=== PATIENT | male | born 1945 | race Caucasian/White ===

== ENCOUNTER 2017-10-07 09:35 | Emergency (ER) | payer MEDICARE, OTHER ==
[2017-10-07 11:52] VITALS: BP 138/77
[2017-10-07] MEDS ORDERED: methylPREDNISolone Sodium Succinate 125 MG/2 ML SDV IM ONE (12:08)
--- NOTE | 2017-10-07 12:15 | EDM.PDOC ---
ED HPI GENERAL MEDICAL PROBLEM - General Chief Complaint: Skin Complaint Stated Complaint: RASH Time Seen by Provider: 10/07/17 11:52 Source of Information: Reports: Patient History Limitations: Reports: No Limitations - History of Present Illness INITIAL COMMENTS - FREE TEXT/NARRATIVE: 72 yo male presents with rash. Pt had thallium stress test on Sun. Sun night mild rash to abd has been worsening since. Severe itching to groin, ABD and axillary. Benedryl helps but does not resolve itching. Denies new exposure other then the Thallium. - Related Data Allergies Allergy/AdvReac Type Severity Reaction Status Date / Time celecoxib [From Celebrex] Allergy Severe Shortness Verified 10/07/17 11:57 of Breath Penicillins Allergy Severe Shortness Verified 10/07/17 11:57 of Breath Iodinated Contrast- Oral and AdvReac Nausea Verified 10/07/17 11:57 IV Dye [Iodinated Contrast Media - IV Dye] Home Meds: Home Meds Aspirin 81 mg PO DAILY 01/31/13 [History] Clopidogrel Bisulfate [Clopidogrel] 75 mg PO DAILY 01/31/13 [History] Gabapentin 300 mg PO BID 01/31/13 [History] Hydrocodone/Acetaminophen [Hydrocodone-Acetaminophen 5-325] 1 tab PO Q6H PRN [History] Nitroglycerin [Nitrostat] 1 tab SL ASDIRECTED 09/27/15 [History] Multivitamin with Minerals [Multiple Vitamin] 1 tab PO DAILY 05/19/16 [History] Acetaminophen 650 mg PO Q4H PRN 10/01/17 [History] Esomeprazole [NexIUM] 40 mg PO DAILY 10/01/17 [History] Furosemide 40 mg PO DAILY 10/01/17 [History] Isosorbide Mononitrate [Isosorbide Mononitrate ER] 60 mg PO DAILY 10/01/17 [ History] Metoprolol Succinate 25 mg PO DAILY 10/01/17 [History] atorvaSTATin [Lipitor] 80 mg PO BEDTIME 10/01/17 [History] Past Medical History HEENT History: Reports: Hard of Hearing, Impaired Vision Other HEENT History: wear glasses Cardiovascular History: Reports: Angina, Blood Clots/VTE/DVT, Bypass, CAD, Hypertension, [place], Stents Respiratory History: Reports: Pneumonia, Recurrent Gastrointestinal History: Reports: Chronic Diarrhea, Hiatal Hernia, Other (See Below) Other Gastrointestinal History: c diff Musculoskeletal History: Reports: Arthritis, Back Pain, Chronic Neurological History: Reports: Other (See Below) Other Neuro History: spina bifida - Infectious Disease History Infectious Disease History: Reports: C-Difficile - Past Surgical History Cardiovascular Surgical History: Reports: Coronary Artery Bypass GI Surgical History: Reports: Appendectomy, Cholecystectomy, Colonoscopy, EGD, Hernia Repair/Other Male Surgical History: Reports: TURP-Transurethral Resection of Prostate Musculoskeletal Surgical History: Reports: Other (See Below) Social & Family History - Family History Family Medical History: Noncontributory - Tobacco Use Smoking Status *Q: Never Smoker - Caffeine Use Caffeine Use: Reports: Tea - Living Situation & Occupation Living situation: Reports: Occupation: Retired ED ROS GENERAL - Review of Systems Review Of Systems: See Below Constitutional: Denies: Fever, Chills Respiratory: Denies: Shortness of Breath, Wheezing Cardiovascular: Denies: Chest Pain ED EXAM, SKIN/RASH Exam: See Below Exam Limited By: No Limitations General Appearance: Alert, WD/WN, No Apparent Distress Respiratory/Chest: No Respiratory Distress Psychiatric: Normal Affect, Normal Mood Skin: Warm, Dry, Rash Location, Skin: Abdomen, Back, Lower Extremity, Right, Lower Extremity, Left, Genital, Axillary, Groin Characteristics: Maculopapular, Erythematous (blanchable) Lymphatic: No Adenopathy Course - Vital Signs Last Recorded V/S: Last Vital Signs Temp 35 C L 10/07/17 11:51 Pulse 61 10/07/17 11:51 Resp 17 10/07/17 11:51 BP 138/77 10/07/17 11:51 Pulse Ox 98 10/07/17 11:51 - Orders/Labs/Meds Meds: Medications Discontinued Medications Generic Name Dose Route Start Last Admin Trade Name Freq PRN Reason Stop Dose Admin Methylprednisolone Sodium Succinate 125 mg 10/07/17 12:08 Solu-Medrol IM 10/07/17 12:09 ONETIME ONE - Re-Assessments/Exams Free Text/Narrative Re-Assessment/Exam: 10/07/17 12:17 IM solumedrol given in ER. Encouraged pt to increase fluid intake with goal of 2 liters per day. avoid hot baths or showers and utilize benedryl and needed. Will DC on prednisone taper to start tomorrow Departure - Departure Time of Disposition: 12:18 Disposition: Home, Self-Care 01 Clinical Impression: Allergic drug rash - Discharge Information Referrals: Ryan Ramírez MD [Primary Care Provider] - Additional Instructions: prednisone 20 mg taper: 2 tablets for 3 days, 1 tablet for 3 days, half tablet for 2 days. increase fluid intake with goal of 2 liters per day avoid hot baths or showers may use benedryl as needed for itching follow-up with primary care if not markedly improved by Sunday
== END 2017-10-07 12:33 | disposition home or self-care (01) ==
LOC: JP.ED 09:35
DX: L27.0 Generalized skin eruption due to drugs and medicaments taken internally (principal); T50.905A Adverse effect of unspecified drugs, medicaments and biological substances, initial encounter; I10 Essential (primary) hypertension; M19.90 Unspecified osteoarthritis, unspecified site; I25.2 Old myocardial infarction; Z79.899 Other long term (current) drug therapy; Z88.1 Allergy status to other antibiotic agents; Z88.0 Allergy status to penicillin; Z91.041 Radiographic dye allergy status
CPT/HCPCS: 96372; 99283; J2930

== ENCOUNTER 2020-11-02 20:13 | Observation (INO) | payer MEDICARE ==
[2020-11-02] MEDS ORDERED: Ondansetron 4 MG/2 ML SDV IVPUSH ONE (21:12)
[2020-11-02] MEDS ORDERED: HYDROmorphone 0.5 MG/0.5 ML Syringe IVPUSH ONE (21:12)
[2020-11-02] MEDS ORDERED: Sodium Chloride 0.9% 1,000 ML IV SCH (21:15)
--- NOTE | 2020-11-02 22:46 | CRLCT ---
CT HEAD DATE: 11/02/2020 CLINICAL HISTORY: Patient with fall and head trauma. TECHNIQUE: Standard CT scanning of the head was performed. COMPARISON: None. FINDINGS: There is a 6mm x 3mm hyperdense lesion in the left aspect of the posterior falx, most likely representing a small subdural hemorrhage given the history of trauma. There is no territorial infarction. There are moderate microangiopathic changes. There is diffuse parenchymal volume loss. There is no significant mass effect or midline shift. The calvarium is unremarkable. The orbits are unremarkable. The paranasal sinuses are unremarkable. The mastoid air cells are unremarkable. The soft tissues are unremarkable. IMPRESSION: 1. 6mm x 3mm hyperdense lesion in the left aspect of the posterior falx, in the medial parietal region, most likely represents a small subdural hemorrhage given the history of recent trauma. If this lesion does not resolve in follow-up imaging, then a small meningioma should be considered. A follow-up head CT in 4-6 hours is recommended to assess for any interval change. 2. Moderate microangiopathic changes and diffuse parenchymal volume loss. Findings were discussed with Dr. Barnes at 10:42 AM, within 2 minutes of identification of the hemorrhage. Please note that all CT scans at this facility use dose modulation, iterative reconstruction, and/or weight-based dosing when appropriate to reduce radiation dose to as low as reasonably achievable. Dictated by: Elizabeth Beckman MD @ 11/02/2020 22:45:49 (Electronically Signed)
--- NOTE | 2020-11-02 23:07 | CRLCT ---
INDICATION: Fall, injury to right chest and abdomen TECHNIQUE: CT chest, abdomen, and pelvis without i.v. contrast. Coronal and sagittal reformats were obtained. COMPARISON: 05/31/2016, 09/27/2015 FINDINGS: CHEST: Moderate image quality degradation noted due to beam hardening artifacts from scanning with the arms by the patient`s side. Cardiovascular: The heart has an unremarkable appearance and size. The pulmonary arteries are unremarkable in appearance. Mild stable aneurysmal enlargement of the ascending aorta is noted measuring 4 cm. Severe atherosclerotic calcifications are noted in the coronary arteries. Previous median sternotomy and coronary artery bypass grafting (CABG) noted. Mediastinum: No mass or adenopathy seen. Lung: Mild linear scarring is seen in the posterior right upper lobe. Pleural parenchymal scarring is present in the posterior right lower lobe. Mild bibasilar subpleural senescent fibrosis is seen. No pulmonary contusion, laceration or pneumothorax is seen. Infiltration of the subcutaneous fat is present within the right lateral abdominal wall which may represent edema and interstitial hematoma. There is a 3 mm nodule in the left upper lobe on image 51, series 3. A punctate nodule is present in the right upper lobe on image 44. A 2 mm nodule is present in the posterior right upper lobe on image 52. There is a subpleural 2 mm nodule present in the right lower lobe on image 56. Small 4 mm nodules present in the anterior right lower lobe. These are not significantly changed from 2017 and likely benign. Pleura and pericardium: Thin bilateral calcified pleural plaques are present in the hemithoraces. These may be due to prior asbestos exposure. No significant pericardial effusion is present. Chest wall and axilla: No mass or adenopathy seen. Bone: Unremarkable for age. No acute osseous injuries seen. ABDOMEN/PELVIS: Liver: Unremarkable. Spleen: Unremarkable. Pancreas: Unremarkable. Gallbladder: Previous cholecystectomy noted without significant intra- or extrahepatic biliary ductal dilatation seen. Kidney: Unremarkable. No kidney or ureteral stones or obstruction seen. Adrenal: Unremarkable. Bowel: A moderate amount of stool is present within the rectal vault. The appendix is normal in appearance and size. Vascular: See above. Lymph: Unremarkable. Peritoneum: Unremarkable. No pneumoperitoneum is seen. No significant ascites is noted. Pelvis: Moderate bladder distention is noted. Soft tissue: See above. Bone: Anterior spinal fusion of L3 through L5 noted. IMPRESSION: 1. Infiltration of the subcutaneous fat is present within the right lateral abdominal wall which may represent edema and interstitial hematoma. Dictated by Elier Berrios MD @ 11/02/2020 11:06:16 PM Please note that all CT scans at this facility use dose modulation, iterative reconstruction, and/or weight-based dosing when appropriate to reduce radiation dose to as low as reasonably achievable. Dictated by: Elier Berrios MD @ 11/02/2020 23:06:20 (Electronically Signed)
--- NOTE | 2020-11-02 23:28 | EDM.PDOC ---
ED HPI GENERAL MEDICAL PROBLEM - General Chief Complaint: Abdominal Pain Stated Complaint: FELL Time Seen by Provider: 11/02/20 20:45 Source of Information: Reports: Patient, Family History Limitations: Reports: No Limitations - History of Present Illness INITIAL COMMENTS - FREE TEXT/NARRATIVE: pt was in the back yard and fell from ground level and landed on his rt side. He did hit his head and the rt side of his chest and his rt abdoman. He did develop a hematoma on the rt side of the abdoman which has gotten larger he believes in the last hr. Onset: Today, Sudden Duration: Hour(s): Location: Reports: Head, Chest, Abdomen, Other ( he is having pain with deep breathing. ) Quality: Reports: Sharp Associated Symptoms: Reports: Chest Pain, Other (pt is having pain in the rt lower abdoman. ) Right Flank Pain Score (Numeric/FACES): 8 - Related Data Allergies Allergy/AdvReac Type Severity Reaction Status Date / Time celecoxib [From Celebrex] Allergy Severe Shortness Verified 10/17/19 10:08 of Breath Penicillins Allergy Severe Shortness Verified 10/17/19 10:08 of Breath regadenoson [From Lexiscan] Allergy Rash Verified 10/17/19 11:03 Iodinated Contrast Media AdvReac Nausea Verified 11/02/20 20:49 [Iodinated Contrast Media - IV Dye] Home Meds: Home Meds Aspirin 81 mg PO DAILY 01/31/13 [History] Clopidogrel Bisulfate [Clopidogrel] 75 mg PO DAILY 01/31/13 [History] Gabapentin 300 mg PO BID 01/31/13 [History] Hydrocodone/Acetaminophen [Hydrocodone-Acetaminophen 5-325] 1 tab PO Q6H PRN 01/31/13 [History] Nitroglycerin [Nitrostat] 1 tab SL ASDIRECTED 09/27/15 [History] Multivitamin with Minerals [Multiple Vitamin] 1 tab PO DAILY 05/19/16 [History] Furosemide 40 mg PO DAILY 10/01/17 [History] Isosorbide Mononitrate [Isosorbide Mononitrate ER] 60 mg PO DAILY 10/01/17 [History] Metoprolol Succinate 12.5 mg PO BID 10/01/17 [History] atorvaSTATin [Lipitor] 80 mg PO BEDTIME 10/01/17 [History] Acetaminophen [Tylenol Arthritis] 650 mg PO ASDIRECTED PRN 06/03/19 [History] amLODIPine [Norvasc] 5 mg PO DAILY 06/03/19 [History] Past Medical History HEENT History: Reports: Hard of Hearing, Impaired Vision Other HEENT History: wear glasses Cardiovascular History: Reports: Angina, Blood Clots/VTE/DVT, Bypass, CAD, Hypertension, [place], Stents Respiratory History: Reports: Pneumonia, Recurrent Gastrointestinal History: Reports: Chronic Diarrhea, Hiatal Hernia, Other (See Below) Other Gastrointestinal History: c diff Musculoskeletal History: Reports: Arthritis, Back Pain, Chronic Neurological History: Reports: Other (See Below) Other Neuro History: spina bifida - Infectious Disease History Infectious Disease History: Reports: C-Difficile, Meningitis, Rheumatic Fever, Other (See Below) Other Infectious Disease History: non - infectious meningitis - Past Surgical History HEENT Surgical History: Reports: None Cardiovascular Surgical History: Reports: Coronary Artery Bypass GI Surgical History: Reports: Appendectomy, Cholecystectomy, Colonoscopy, EGD, Hernia Repair/Other Male Surgical History: Reports: TURP-Transurethral Resection of Prostate Musculoskeletal Surgical History: Reports: Other (See Below) Other Musculoskeletal Surgeries/Procedures:: back and neck surgery Social & Family History - Family History Family Medical History: No Pertinent Family History - Tobacco Use Tobacco Use Status *Q: Former Tobacco User Used Tobacco, but Quit: Yes Month/Year Tobacco Last Used: 05/1995 - Caffeine Use Caffeine Use: Reports: None - Recreational Drug Use Recreational Drug Use: No - Living Situation & Occupation Living situation: Reports: Occupation: Retired ED ROS GENERAL - Review of Systems Review Of Systems: See Below Constitutional: Reports: Weakness HEENT: Reports: No Symptoms, Other (mild headache) Respiratory: Reports: Pleuritic Chest Pain, Other (pt ghurts when he takes a deep breath) Cardiovascular: Reports: No Symptoms Endocrine: Reports: No Symptoms GI/Abdominal: Reports: Other (pt has a hematoma in rt abdomanal wall. ) : Reports: No Symptoms Musculoskeletal: Reports: No Symptoms Skin: Reports: No Symptoms Neurological: Reports: Headache, Other (pt did hit his head and he is on plavix) Psychiatric: Reports: No Symptoms ED EXAM, GI/ABD - Physical Exam Exam: See Below Text/Narrative:: pt arrived after a fall. He hit his head his rt chest and his rt abdoman. He has a obvious hematoma on the rt abdomanal wall. Exam Limited By: No Limitations General Appearance: Alert, Moderate Distress, Other (hurts with deep breathing. ) Ears: Normal TMs Nose: Normal Inspection Throat/Mouth: Normal Inspection Head: Other (mild swellon the rt side of the frontal area. ) Neck: Normal Inspection Respiratory/Chest: Other (pain with deep breathing. ) Cardiovascular: Regular Rate, Rhythm GI/Abdominal Exam: Other ( tender. He has an obvious hematoma. ) (Male) Exam: Deferred Rectal (Males) Exam: Deferred Back Exam: Normal Inspection Extremities: Normal Inspection Neurological: Alert, Oriented, Normal Cognition, Other (pt diod not lose consciousness) Psychiatric: Normal Affect Course - Vital Signs Last Recorded V/S: Last Vital Signs Temp 36.5 C 11/02/20 20:46 Pulse 83 11/02/20 22:22 Resp 20 11/02/20 20:46 BP 157/74 H 11/02/20 22:22 Pulse Ox 94 L 11/02/20 22:22 - Orders/Labs/Meds Orders: Active Orders 24 hr Category Date Time Status UA W/MICROSCOPIC [URIN] Urgent Lab 11/02/20 22:40 Ordered Sodium Chloride 0.9% [Normal Saline] 1,000 ml Med 11/02/20 21:15 Active IV ASDIRECTED Medication Orders Sodium Chloride (Normal Saline) 1,000 mls @ 150 mls/hr IV ASDIRECTED RUBA Last Admin: 11/02/20 21:30 Dose: 150 mls/hr Documented by: MERCEDEZ Labs: Laboratory Tests 11/02/20 11/02/20 Range/Units 21:20 21:20 WBC 7.5 (4.5-11.0) K/uL RBC 3.53 L (4.30-5.90) M/uL Hgb 12.1 (12.0-15.0) g/dL Hct 35.6 L (40.0-54.0) % MCV 101 H (80-98) fL MCH 34 H (27-31) pg MCHC 34 (32-36) % Plt Count 182 (150-400) K/uL Neut % (Auto) 72.7 H (36-66) % Lymph % (Auto) 15.2 L (24-44) % Harper % (Auto) 10.4 H (2-6) % Eos % (Auto) 1.6 L (2-4) % Baso % (Auto) 0.1 (0-1) % Sodium 140 (140-148) mmol/L Potassium 4.2 (3.6-5.2) mmol/L Chloride 104 (100-108) mmol/L Carbon Dioxide 26 (21-32) mmol/L Anion Gap 9.6 (5.0-14.0) mmol/L BUN 28 H (7-18) mg/dL Creatinine 1.3 (0.7-1.3) mg/dL Est Cr Clr Drug Dosing 55.49 mL/min Estimated GFR (MDRD) 54 L (>60) BUN/Creatinine Ratio Not Reportable Glucose 117 H (74-106) mg/dL Calcium 8.8 (8.5-10.1) mg/dL Total Bilirubin 0.7 (0.2-1.0) mg/dL AST 23 (15-37) U/L ALT 29 (12-78) U/L Alkaline Phosphatase 101 (46-116) U/L Total Protein 6.3 L (6.4-8.2) g/dL Albumin 3.7 (3.4-5.0) g/dL Globulin 2.6 (2.3-3.5) g/dL Albumin/Globulin Ratio 1.4 (1.2-2.2) Meds: Medications Generic Name Dose Route Start Last Admin Trade Name Jolynn PRN Reason Stop Dose Admin Sodium Chloride 1,000 mls @ 150 mls/hr 11/02/20 21:15 11/02/20 21:30 Normal Saline IV 150 mls/hr ASDIRECTED RUBA Administration Discontinued Medications Generic Name Dose Route Start Last Admin Trade Name Arnulfoq PRN Reason Stop Dose Admin Hydromorphone HCl 0.5 mg 11/02/20 21:12 11/02/20 21:30 Hydromorphone 0.5 Mg/0.5 Ml Syringe IVPUSH 11/02/20 21:13 0.5 mg ONETIME ONE Administration Ondansetron HCl 4 mg 11/02/20 21:12 11/02/20 21:30 Ondansetron 4 Mg/2 Ml Sdv IVPUSH 11/02/20 21:13 4 mg ONETIME ONE Administration - Re-Assessments/Exams Free Text/Narrative Re-Assessment/Exam: 11/02/20 23:31 cat scan of the chest abdoman and pelvis shows the abdomanal wall hematoma but no other finding. He had a cat scan of the head which shows a very small subdural. This will be observed and a repeat cat scan of the head will be obtained in am. This was the advuise of the neuroradiologist. Departure - Departure Time of Disposition: 23:33 Disposition: Admitted As Inpatient 66 Condition: Fair Clinical Impression: Subdural hematoma, Hematoma of abdominal wall - Discharge Information Referrals: Ryan Ramírez MD [Primary Care Provider] - Care Plan Goals: admit to Dr Buckley Sepsis Event Note (ED) - Evaluation Sepsis Screening Result: No Definite Risk - Focused Exam Vital Signs: Vital Signs Temp Pulse Resp BP Pulse Ox 11/02/20 22:22 83 157/74 H 94 L 11/02/20 21:29 82 166/88 H 11/02/20 20:46 36.5 C 79 20 169/81 H 97 - My Orders Last 24 Hours: My Active Orders 11/02/20 21:15 Sodium Chloride 0.9% [Normal Saline] 1,000 ml IV ASDIRECTED 11/02/20 22:40 UA W/MICROSCOPIC [URIN] Urgent - Assessment/Plan Last 24 Hours: My Active Orders 11/02/20 21:15 Sodium Chloride 0.9% [Normal Saline] 1,000 ml IV ASDIRECTED 11/02/20 22:40 UA W/MICROSCOPIC [URIN] Urgent
[2020-11-03] MEDS ORDERED: Nitroglycerin 0.4 MG Tab.SL SL SCH (00:30)
[2020-11-03] MEDS: Acetaminophen/HYDROcodone 325-10 MG Tab PO PRN ×4 (01:36→19:07)
[2020-11-03] MEDS: Acetaminophen 325 MG Tab PO PRN ×3 (01:36→10:09)
[2020-11-03] MEDS ORDERED: Sodium Chloride 0.9% 1,000 ML IV SCH (03:15)
--- NOTE | 2020-11-03 04:56 | HP ---
IDENTIFYING DATA: Mr. Eran De Souza is a 75-year-old male from [facility]. CHIEF COMPLAINT: Fall and injury. HISTORY OF PRESENT ILLNESS: Elderly gentleman was walking in his yard this evening when he tripped on an uneven surface on the hard ground and fell striking the right side of his head and right torso on the compacted ground. He had resultant pain of the chest and development of right-sided headache and was transported to the emergency room for evaluation. Denies previous history of stroke. No history of chronic headache disease. He had no loss of consciousness or syncope, simply stating he tripped on an uneven surface. He has had [id number] pain with deep inspiration or movement. No shortness of breath, cough, or sputum production. No abdominal upset or nausea. PAST MEDICAL HISTORY: Multiple previous surgeries including prior coronary artery bypass graft, coronary artery stenting, bilateral cataract extraction, appendectomy, cholecystectomy and hiatal hernia repair. Additionally, he has had TURP for benign prostatic disease as well as prior lumbar back surgery and cervical spine surgery x2. He has a noted history of hypertension, coronary artery disease, and chronic musculoskeletal pain. HABITS: Remote history of tobacco use, discontinuing smoking in 1995. Caffeine intake is nil. Alcohol intake averages 2 to 3 drinks monthly. IMMUNIZATIONS: Has received influenza and COVID vaccine series. CURRENT MEDICATIONS: Include aspirin 81 mg daily; clopidogrel 75 mg daily; gabapentin 300 mg b.i.d.; hydrocodone with acetaminophen 5/325 mg p.o. at bedtime; nitroglycerin 0.4 mg sublingually p.r.n. angina; multivitamin with mineral 1 daily; furosemide 40 mg daily; Imdur 60 mg daily; metoprolol succinate 12.5 mg b.i.d.; atorvastatin 80 mg at bedtime; acetaminophen 650 mg q.4 hours p.r.n. pain; amlodipine 5 mg p.o. daily. ALLERGIES: REPORTED TO CELEBREX, PENICILLIN, AND IV RADIOGRAPHIC CONTRAST AGENTS. SOCIAL HISTORY: He is retired. Generally performs ADLs independently. He has modest decline in hearing acuity, though does not require use of hearing aids. Previous cataract extraction is managed with corrective lenses. He is able to read standard print and drive without difficulty. No history of recurrent falls. Currently residing with his . No recent illnesses. He denies recent COVID exposure or acute respiratory syndrome. FAMILY HISTORY: Noncontributory. REVIEW OF SYSTEMS: NEUROLOGIC: Chronic paresthesias in the feet. History of lumbar and cervical spine disease with surgical stabilization. Cataract extraction. No history of strokes, seizures, or focal weakness. CARDIAC: History of hypertension, hyperlipidemia, and coronary artery disease with previous interventional therapy. Occasional stable intermittent angina, responds favorably to p.r.n. use of nitroglycerin. RESPIRATORY: Denies asthma, emphysema, cough, sputum production, fever or chronic respiratory disease. GASTROINTESTINAL: No history of hepatitis, jaundice, chronic dyspepsia, constipation, melena, or hematochezia. GENITOURINARY: Previous TURP for urinary retention. Nocturia x1. No urinary incontinence. MUSCULOSKELETAL: Chronic arthralgias including the back and cervical spine, chronic dependent edema with lower extremity ache reported. PHYSICAL EXAMINATION: GENERAL: Appearance is that of an elderly male, appearing stated age of 75, with moderate pain exacerbated by movement. VITAL SIGNS: On admission, temperature 36.5 degrees centigrade, pulse 83, respiratory rate 20, blood pressure 157/74, O2 saturation 94% on room air. HEENT: Hearing is slightly diminished. Canals are normal. Pupils are sluggish on constriction to light exposure. Extraocular eye movements are intact and without nystagmus. Light stimulation does cause intensifying of his right-sided headache pain. No facial asymmetry. Speech is clear. NECK: Brisk carotid pulses. No bruits. No JVD. LUNGS: Symmetrical and clear. Right-sided chest pain with deep inspiration or movement. HEART: Regular, without murmurs or gallops heard. ABDOMEN: Nondistended with active sounds. No organomegaly. No guarding or rebound. Good femoral pulses. Hematoma developing over the posterolateral aspect of the right trunk. No pain at the iliac crest or symphysis. EXTREMITIES: Chronic dependent edema. Intact pulses. No open skin lesions noted. Feet are slightly cool to touch. LABORATORY DATA: On admission; WBC 7.5, hemoglobin 12.1, platelet count 182,000. Sodium 140, potassium 4.2, creatinine 1.3, GFR 55, glucose 117 in a nonfasting state. Liver functions within normal range. CT imaging of the head suggests a small subdural hematoma 3 x 6 mm in diameter at the posterior left falx without other acute injury. CT of the chest, abdomen, and pelvis shows no acute bony injury. Hematoma developing over the right flank area is evident. No intraabdominal fluid. No evidence of pneumothorax or hemothorax. IMPRESSIONS: 1. Fall with contusion to the right chest and abdomen, developing a subcutaneous hematoma and resultant chest pain. 2. Small subdural hematoma suggested on CT imaging of the head with accompanying headache. Neurologic presentation is otherwise intact without cognitive impairment. 3. History of coronary artery disease status post coronary artery bypass grafting and coronary artery stenting. 4. Hypertension. 5. Hyperlipidemia. 6. Chronic arthralgias with previous cervical and lumbar spine surgeries. PLAN: With patient's pain and noticed subdural hematoma, he is admitted for continued observation. Vital signs and neuro checks are requested. We will provide clear liquids tonight. Request assistance from nursing with standing, ambulation, and voiding. Followup CT imaging of the head to exclude progressive intracranial bleed is requested for morning hours. We will provide standard bedtime dose of hydrocodone with acetaminophen and/or simple acetaminophen through the nighttime hours for pain. His routine anti-platelet and antihypertensive medications will be held through the night. Resume his cardiac regimen in the morning with the exception of anti-platelet agents if status is stable. We will maintain full code status per patient's expressed desire. Neuro checks have been ordered. Mukul Buckley MD /[id number]
--- NOTE | 2020-11-03 08:43 | PN ---
DATE OF SERVICE: 11/03/2020 SUBJECTIVE: A 75-year-old male with a history of chronic coronary artery disease and degenerative arthritis including involvement of the back was admitted yesterday evening following a fall outdoors while ambulating across an uneven surface with resultant contusion to the right truncal area and a blow to the head. CT imaging revealed a subcutaneous hematoma of the lower aspect of the right trunk without chest or intraabdominal injury. Additionally, he had evidence of a small subdural hematoma at the posterior left crural area which was notable and advised to be monitored as an inpatient with followup imaging for this acute event. Through the nighttime hours, he has noted modest right-sided frontal headache. He has had no visual disturbance or neck pain. Primary complaint is again right-sided chest wall pain with inspiration or movement. He has had no cough or sputum production. Denies GI upset. OBJECTIVE: VITAL SIGNS: Temperature 35.3 degrees centigrade, O2 sats 96% on room air, pulse rate 70, blood pressure 133/64. GENERAL: Appearance of moderate pain secondary to chest wall tenderness. No acute dyspnea is noted. No facial asymmetry. Speech is clear. Subjectively notes mild ongoing right frontotemporal headache pain. No nuchal rigidity. NECK: Brisk carotid pulses. LUNGS: Clear. Right-sided chest pain with inspiration. No wheeze or rhonchi. HEART: Regular without murmurs. ABDOMEN: Nondistended, soft tissue hematoma at the lateral right truncal area with modest pain. IMPRESSION AND PLAN: Fall with contusion to the right truncal region, hematoma developing at the right lower flank as well as noted small left-sided subdural hematoma. Follow up on enhanced CT imaging of the head is anticipated today. If intracranial bleed is unchanging, may be discharged to home. Will require ongoing analgesic therapy for chest and flank pain. Allow gradual increase in activity as tolerated in outpatient. Followup with his primary provider. Mukul Buckley MD /[id number]
--- NOTE | 2020-11-03 08:58 | CT ---
Head wo Cont CLINICAL HISTORY: Follow-up subdural COMPARISON: 11/02/2020 TECHNIQUE: Transverse scans were obtained from the base of the skull through the vertex without IV contrast on a multislice, multidetector CT scanner. Auto dosage reduction and iterative reconstruction techniques employed. FINDINGS: There is a persistent hyperdense focus along the left aspect of the posterior falx. It currently measures 5 x 7 mm. This is unchanged from prior study. There is moderate periventricular and subcortical lucency also unchanged from prior study.. There is no mass effect, hemorrhage, or extraaxial collection. The basal cisterns and sulci over the convexities are prominent. The ventricles are normal for age. IMPRESSION: Persistent focal hyperdensity along the posterior falx on the left. As previously stated this may represent a small focus of hemorrhage or possibly a small solid lesion such as falx hemangioma. Chronic ischemic microvascular changes Moderate age-related atrophy
[2020-11-03] MEDS: Acetaminophen/HYDROcodone 325-10 MG Tab PO SCH ×4 (10:09→21:55)
[2020-11-03] MEDS ORDERED: Metoprolol Succinate 25 MG Tab.ER PO SCH (11:15)
[2020-11-03] MEDS ORDERED: Isosorbide Mononitrate 30 MG Tab.ER PO SCH (12:00)
[2020-11-03] MEDS: amLODIPine 5 MG Tab PO SCH (16:24)
[2020-11-03] MEDS: ISOSORBIDE MONO 60 MG PO SCH (16:25)
--- NOTE | 2020-11-03 17:40 | PCM.SN.2 ---
- Free Text/Narrative Note: I spoke with the radiologist after the second CT was completed. He states that while the area could represent a subdural hematoma given the patient's history of traumatic injury, the lesion may also be related to a meningioma. We will continue to monitor with neurologic checks every 4 hours. Of note the patient had eye pain on lateral movement of the right eye in the ED. This pain has persisted however it is only when looking in the left direction. There is no conjunctival hemorrhage. The pupils are equal round and reactive to light and accommodation. Patient states that he did have cataract surgery of that eye in the recent past. He denies any changes to his vision including floaters, stars, and halos.
[2020-11-03] MEDS: Metoprolol Tartrate 25 MG Tab (PTOM) PO SCH (20:34)
[2020-11-03] MEDS: RANOLAZINE 1000 MG PO SCH (20:35)
[2020-11-03] MEDS: Gabapentin 300 MG Cap PO SCH (20:36)
[2020-11-03] MEDS ORDERED: ATORVASTATIN 80MG TAB (PTOM) PO SCH (21:00)
[2020-11-03] MEDS ORDERED: atorvaSTATin 20 MG Tab PO SCH (21:00)
[2020-11-04] MEDS: Acetaminophen/HYDROcodone 325-10 MG Tab PO SCH ×3 (02:27→09:39)
[2020-11-04] MEDS ORDERED: Furosemide 40 MG Tab (PTOM) PO SCH (09:00)
[2020-11-04] MEDS: Metoprolol Tartrate 25 MG Tab (PTOM) PO SCH (09:37)
[2020-11-04] MEDS: ISOSORBIDE MONO 60 MG PO SCH ×2 (09:37→17:03)
[2020-11-04] MEDS: RANOLAZINE 1000 MG PO SCH (09:38)
[2020-11-04] MEDS: amLODIPine 5 MG Tab PO SCH (09:38)
[2020-11-04] MEDS: Gabapentin 300 MG Cap PO SCH (09:41)
[2020-11-04 10:51] VITALS: BP 124/59; PULSE 67
[2020-11-04] MEDS: Acetaminophen 325 MG Tab PO PRN (11:33)
--- NOTE | 2020-11-04 18:33 | PCM.DCSUM1 ---
Discharge Summary - Hospital Course Free Text/Narrative:: Mr. De Souza is a 75-year-old white male who presented after a fall resulting in a possible subdural hematoma and abdominal wall hematoma. He was admitted for pain control and neurologic checks regarding the subdural hematoma. Subsequent CTs show stable lesion in the posterior falx that may represent a subdural hematoma versus a meningioma. The reason for his fall was difficult to solicit however it is suspected that blood pressure and orthostatic changes may have played a role. A thorough review of his medications was done and he was counseled on holding his blood pressure medications if his blood pressure is low or he is feeling lightheaded or dizzy. He does follow-up with a primary, a neurologist, and a metal base blocker. His pain is well controlled on Tylenol and his possible subdural hematoma is stable. He is able to ambulate adequately by himself. Diagnosis: Stroke: No Modified Bergen Scale: No Signif.Disability Despite Sympt.Able to Carry Out Usual Act./Duties Modified Bergen Scale Score: 1 - Discharge Data Discharge Date: 11/04/20 Discharge Disposition: Home, Self-Care 01 Condition: Good - Referral to Home Health Primary Care Physician: Ryan Ramírez MD - Patient Summary/Data Consults: Consultations 11/04/20 09:50 Consult to Physical Therapy [PT Evaluation and Treatment] [CONS] Routine Please Evaluate and Treat. PT Reason for Consult: Ambulation Pending Discharge: Yes Discharge Disposition: Home This query below is only for informational purposes and is not editable. Admission Diagnosis/Problem: Subdural hematoma - Patient Instructions Diet: Heart Healthy Diet Driving: May Drive Today Showering/Bathing: May Shower - Discharge Plan Home Medications: Home Meds Aspirin 81 mg PO DAILY 01/31/13 [History] Clopidogrel Bisulfate [Clopidogrel] 75 mg PO DAILY 01/31/13 [History] Gabapentin 300 mg PO BID 01/31/13 [History] Hydrocodone/Acetaminophen [Hydrocodone-Acetaminophen 5-325] 1 tab PO Q6H PRN 01/31/13 [History] Nitroglycerin [Nitrostat] 1 tab SL ASDIRECTED 09/27/15 [History] Multivitamin with Minerals [Multiple Vitamin] 1 tab PO DAILY 05/19/16 [History] Isosorbide Mononitrate [Isosorbide Mononitrate ER] 60 mg PO BID 10/01/17 [History] atorvaSTATin [Lipitor] 80 mg PO BEDTIME 10/01/17 [History] Acetaminophen [Tylenol Arthritis] 650 mg PO Q6H PRN 06/03/19 [History] amLODIPine [Norvasc] 5 mg PO DAILY 06/03/19 [History] Metoprolol Tartrate 25 mg PO BID 11/03/20 [History] Ranolazine [Ranolazine ER] 1,000 mg PO Q12H 11/03/20 [History] Patient Handouts: Head Injury, Adult Forms: ED Department Discharge Referrals: Ryan Ramírez MD [Primary Care Provider] - 11/11/20 1:30 pm (Please arrive 15 minutes early to register for your appointment.) - Discharge Summary/Plan Comment DC Time >30 min.: Yes - General Info Date of Service: 11/04/20 Functional Status: Reports: Pain Controlled, Tolerating Diet, Ambulating, Urinating - Review of Systems General: Reports: No Symptoms, Appetite. Denies: Weakness HEENT: Reports: No Symptoms. Denies: Headaches, Visual Changes Pulmonary: Reports: No Symptoms. Denies: Shortness of Breath, Cough Cardiovascular: Reports: No Symptoms. Denies: Chest Pain, Palpitations Gastrointestinal: Reports: No Symptoms, Other (abdominal wall tenderness on right). Denies: Abdominal Pain, Constipation, Diarrhea Genitourinary: Reports: No Symptoms. Denies: Dysuria, Frequency, Urgency Musculoskeletal: Reports: No Symptoms Skin: Reports: No Symptoms Neurological: Reports: No Symptoms. Denies: Confusion, Dizziness, Headache Psychiatric: Reports: No Symptoms. Denies: Confusion - Patient Data Vitals - Most Recent: Last Vital Signs Temp 96 F L 11/04/20 10:49 Pulse 67 11/04/20 10:49 Resp 16 11/04/20 10:49 BP 124/59 L 11/04/20 10:49 Pulse Ox 96 11/04/20 10:49 Weight - Most Recent: 207 lb 10.807 oz I&O - Last 24 hours: Intake & Output 11/04/20 11/04/20 11/04/20 06:59 14:59 22:59 Intake Total 300 240 Output Total 400 Balance -100 240 Lab Results - Last 24 hrs: Laboratory Results - last 24 hr 11/04/20 11/04/20 Range/Units 04:23 04:23 WBC 4.4 L (4.5-11.0) K/uL RBC 3.23 L (4.30-5.90) M/uL Hgb 11.1 L (12.0-15.0) g/dL Hct 33.0 L (40.0-54.0) % MCV 102 H (80-98) fL MCH 34 H (27-31) pg MCHC 34 (32-36) % Plt Count 170 (150-400) K/uL Sodium 139 L (140-148) mmol/L Potassium 4.6 (3.6-5.2) mmol/L Chloride 104 (100-108) mmol/L Carbon Dioxide 29 (21-32) mmol/L Anion Gap 10.6 (5.0-14.0) mmol/L BUN 17 (7-18) mg/dL Creatinine 0.9 (0.8-1.3) mg/dL Est Cr Clr Drug Dosing 79.76 mL/min Estimated GFR (MDRD) > 60 (>60) Glucose 89 (74-106) mg/dL Calcium 8.7 (8.5-10.1) mg/dL Med Orders - Current: Current Medications Discontinued Medications Acetaminophen (Acetaminophen 325 Mg Tab) 650 mg PO Q4H PRN PRN Reason: Pain Last Admin: 11/04/20 11:33 Dose: 650 mg Documented by: Hydrocodone Bitart/Acetaminophen (Acetaminophen/Hydrocodone 325-10 Mg Tab) 1 tab PO Q4H PRN PRN Reason: Pain Last Admin: 11/03/20 05:57 Dose: 1 tab Documented by: Hydrocodone Bitart/Acetaminophen (Acetaminophen/Hydrocodone 325-10 Mg Tab) 1 tab PO Q4H PRN PRN Reason: Breakthrough Pain Last Admin: 11/03/20 19:07 Dose: 1 tab Documented by: Hydrocodone Bitart/Acetaminophen (Acetaminophen/Hydrocodone 325-10 Mg Tab) 1 tab PO Q4H RUBA Stop: 11/04/20 10:01 Last Admin: 11/04/20 09:39 Dose: Not Given Documented by: Amlodipine Besylate (Amlodipine 5 Mg Tab) 5 mg PO DAILY [facility] Last Admin: 11/04/20 09:38 Dose: Not Given Documented by: Atorvastatin Calcium (Atorvastatin 20 Mg Tab) 80 mg PO BEDTIME RUBA Furosemide (Furosemide 40 Mg Tab (Ptom)) 40 mg PO DAILY [facility] Last Admin: 11/04/20 09:37 Dose: Not Given Documented by: Gabapentin (Gabapentin 300 Mg Cap) 300 mg PO BID [facility] Last Admin: 11/04/20 09:41 Dose: 300 mg Documented by: Hydromorphone HCl (Hydromorphone 0.5 Mg/0.5 Ml Syringe) 0.5 mg IVPUSH ONETIME ONE Stop: 11/02/20 21:13 Last Admin: 11/02/20 21:30 Dose: 0.5 mg Documented by: Sodium Chloride (Normal Saline) 1,000 mls @ 150 mls/hr IV ASDIRECTED [facility] Last Admin: 11/02/20 21:30 Dose: 150 mls/hr Documented by: Sodium Chloride (Normal Saline) 1,000 mls @ 0 mls/hr IV ASDIRECTED [facility] Isosorbide Mononitrate (Isosorbide Mononitrate 30 Mg Tab.Er) 60 mg PO DAILY@0730 [facility] Last Admin: 11/03/20 16:27 Dose: Not Given Documented by: Metoprolol Succinate (Metoprolol Succinate 25 Mg Tab.Er) 12.5 mg PO BID [facility] Last Admin: 11/03/20 16:27 Dose: Not Given Documented by: Metoprolol Tartrate (Metoprolol Tartrate 25 Mg Tab (Ptom)) 25 mg PO BID [facility] Last Admin: 11/04/20 09:37 Dose: Not Given Documented by: Nitroglycerin (Nitroglycerin 0.4 Mg Tab.Sl) 0.4 mg SL ASDIRECTED [facility] Non-Formulary Medication (Acetaminophen [Tylenol Arthritis]) 650 mg PO ASDIRECTED PRN PRN Reason: Pain Ondansetron HCl (Ondansetron 4 Mg/2 Ml Sdv) 4 mg IVPUSH ONETIME ONE Stop: 11/02/20 21:13 Last Admin: 11/02/20 21:30 Dose: 4 mg Documented by: Atorvastatin 80mg (Tab (Ptom)) 1 each PO BEDTIME [facility] Last Admin: 11/03/20 20:35 Dose: 1 each Documented by: Isosorbide [place] 60mg (Er (Ptom)) 0 each PO BIDAC [facility] Last Admin: 11/04/20 17:03 Dose: 1 each Documented by: Ranolazine Er 1, (000mg Tab (Ptom)) 1 each PO BID [facility] Last Admin: 11/04/20 09:38 Dose: Not Given Documented by: - Exam General: Reports: Alert, Oriented, Cooperative, No Acute Distress HEENT: Reports: Pupils Equal, Pupils Reactive, EOMI, Mucous Membr. 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
== END 2020-11-04 17:15 | disposition home or self-care (01) ==
LOC: JP.ED 20:13 → JP.MS 23:53
PROVIDERS: ADMIT Family Medicine; ATTEND Internal Medicine
DX: S20.211A Contusion of right front wall of thorax, initial encounter (principal); S30.1XXA Contusion of abdominal wall, initial encounter; S06.5X9A Traumatic subdural hemorrhage with loss of consciousness of unspecified duration, initial encounter; I10 Essential (primary) hypertension; E78.5 Hyperlipidemia, unspecified; I25.10 Atherosclerotic heart disease of native coronary artery without angina pectoris; Z95.1 Presence of aortocoronary bypass graft; M25.59 Pain in other specified joint; Z79.82 Long term (current) use of aspirin; Z79.899 Other long term (current) drug therapy; Z98.890 Other specified postprocedural states; Z88.0 Allergy status to penicillin; Z88.8 Allergy status to other drugs, medicaments and biological substances; Z91.041 Radiographic dye allergy status; W19.XXXA Unspecified fall, initial encounter
CPT/HCPCS: 36415; 70450; 70450-26; 71250; 74176; 80048; 80053; 81001; 85025; 85027; 97116-GP; 97163-GP; 97535-GP; 99285; A9270-GY; J1170; J2405; J7030

== ENCOUNTER 2021-02-18 07:19 | Day surgery (SDC) | payer MEDICARE ==
[2021-02-18] MEDS ORDERED: Propofol 200 MG/20 ML SDV ONE (07:41)
[2021-02-18] MEDS ORDERED: fentaNYL 100 MCG/2 ML SDV ONE (07:41)
[2021-02-18] MEDS ORDERED: Sodium Chloride 0.9% 1,000 ML IV SCH (08:00)
[2021-02-18 09:57] VITALS: BP 119/73; PULSE 65
--- NOTE | 2021-02-18 12:20 | OR ---
DATE OF PROCEDURE: 02/18/2021 SURGEON: Per Bermudez MD PROCEDURE: Colonoscopy. FINDINGS: 1. Transverse colon polyp of approximately 8 mm, completely removed using hot snare wire device. 2. Diverticulosis, mild, limited to sigmoid colon. COMPLICATION: None. PHARMACIST PER DIEM: None. ANESTHESIA: MAC. PREOPERATIVE DIAGNOSIS: Screening colonoscopy. POSTOPERATIVE DIAGNOSIS: Screening colonoscopy. RISKS: Risks, benefits, alternatives, and limitations including, but not limited to infection, bleeding, perforation, false positives, false negatives were explained to the patient and they wished to proceed. PROCEDURE IN DETAIL: The patient was placed in left lateral decubitus position. Digital rectal exam was performed without abnormality. The scope was introduced and advanced atraumatically to the ileocecal valve. A photo was taken. The scope was brought back to the ascending, transverse, descending colon, and retroflexed. No evidence of old or new blood. No masses. The aforementioned polyp was identified and completely removed. The diverticulosis described as mild, limited to sigmoid colon without evidence of diverticulitis or bleeding. Greater than 8 minutes was spent removing the scope. Prep was acceptable, approximately 90% of luminal surface could be seen. The patient tolerated the procedure well. Per Bermudez MD /[id number]
== END 2021-02-18 10:12 | disposition home or self-care (01) ==
LOC: JP.SDS 07:19
PROVIDERS: ATTEND Surgery
DX: Z12.11 Encounter for screening for malignant neoplasm of colon (principal); D12.3 Benign neoplasm of transverse colon; K57.30 Diverticulosis of large intestine without perforation or abscess without bleeding; I25.10 Atherosclerotic heart disease of native coronary artery without angina pectoris; I11.0 Hypertensive heart disease with heart failure; I50.30 Unspecified diastolic (congestive) heart failure; K21.9 Gastro-esophageal reflux disease without esophagitis
CPT/HCPCS: 45385; J2704; J3010; J7030

== ENCOUNTER 2023-03-31 12:16 | Inpatient (IN) | payer MEDICARE ==
[2023-03-31] MEDS ORDERED: Aspirin 81 MG Tab.Chew PO ONE (12:50)
[2023-03-31] MEDS ORDERED: Nitroglycerin 0.4 MG Tab.SL SL PRN (12:50)
[2023-03-31] MEDS ORDERED: Albuterol/Ipratropium 3.0-0.5 MG/3 ML Neb Soln NEB ONE (12:53)
[2023-03-31 13:08] LABS: BASOPHILS ABSOLUTE AUTO 0.05 K/uL (0.00-0.10); BASOPHILS PERCENT AUTO 0.5 % (0.1-1.3); EOSINOPHILS ABSOLUTE AUTO 0.35 K/uL (0.00-0.40); EOSINOPHILS PERCENT AUTO 3.5 % (0.0-5.4); HEMATOCRIT 38.6 % (38.4-49.7); HEMOGLOBIN 13.5 g/dL (12.9-16.9); IMMATURE GRAN ABSOLUTE AUTO 0.03 K/uL (0.00-0.23); IMMATURE GRAN PERCENT AUTO 0.3 % (0.0-0.7); LYMPHOCYTES ABSOLUTE AUTO 1.11 K/uL (0.8-3.3); LYMPHOCYTES PERCENT AUTO 11.2 % (11.4-47.7); MEAN CORPUSCULAR HEMOGLOBIN 33.5 pg (31.6-35.5); MEAN CORPUSCULAR VOLUME 95.8 fL (81.4-99.0); MONOCYTES ABSOLUTE AUTO 0.66 K/uL (0.20-0.90); MONOCYTES PERCENT AUTO 6.7 % (3.3-12.6); NEUTROPHILS ABSOLUTE AUTO 7.67 K/uL (1.0-7.6); NEUTROPHILS PERCENT AUTO 77.8 % (40.0-78.1); PLATELET COUNT,PLT 194 K/uL (130-375); RED BLOOD CELL COUNT 4.03 M/uL (4.14-5.76); WHITE BLOOD CELL COUNT,WBC 9.9 K/uL (3.2-11.0)
[2023-03-31 13:43] LABS: A/G RATIO 1.2 (1.2-2.2); ALANINE AMINOTRANSFERASE,ALT 15 U/L (12-78); ALBUMIN 3.4 g/dL (3.4-5.0); ALKALINE PHOSPHATASE 59 U/L (46-116); ASPARTATE AMNIOTRANSFERASE,AST 17 U/L (15-37); BLOOD UREA NITROGEN,BUN 25 mg/dL (7-18); CALCIUM 8.7 mg/dL (8.5-10.1); CARBON DIOXIDE,CO2 29 mmol/L (21-32); CHLORIDE,CL 102 mmol/L (100-108); CREATININE 1.2 mg/dL (0.8-1.3); ESTIMATED GFR 62 mL/min (>60); GLUCOSE RANDOM 114 mg/dL (74-106); PRO B-TYPE NATRIUR PEPT,BNPPRO 1049 pg/mL (5-450); PROTEIN TOTAL,TP 6.2 g/dL (6.4-8.2); SODIUM,NA 138 mmol/L (140-148); TROPONIN I HIGH SENSITIVITY 12.1 pg/mL (<=60.3)
[2023-03-31] MEDS: Morphine 4 MG/ML Syringe IVPUSH PRN ×2 (14:02→18:55)
[2023-03-31] MEDS ORDERED: diphenhydrAMINE 50 MG/ML SDV IVPUSH ONE (14:08)
[2023-03-31] MEDS ORDERED: methylPREDNISolone Sodium Succinate 40 MG/1 ML SDV IVPUSH ONE (14:08)
[2023-03-31] MEDS ORDERED: Sodium Chloride 0.9% 1,000 ML IV SCH (14:15)
[2023-03-31] MEDS ORDERED: Sodium Chloride 0.9% 100 ML IV SCH (14:30)
[2023-03-31] MEDS ORDERED: Iopamidol 755 Mg/ML 100 ML Bottle IV SCH (14:30)
[2023-03-31] MEDS ORDERED: Furosemide 40 MG/4 ML VIAL IVPUSH ONE (17:07)
[2023-03-31 18:47] LABS: CORONAVIRUS COVID-19 NAA NEGATIVE (NEGATIVE); INFLUENZA A NAA NEGATIVE (NEGATIVE); INFLUENZA B NAA NEGATIVE (NEGATIVE); RESPIRATORY SYNCYTIAL VIR NAA NEGATIVE (NEGATIVE)
[2023-03-31] MEDS ORDERED: Magnesium Hydroxide 400 MG/5 ML Susp 30 ML Cup PO PRN (19:04)
[2023-03-31] MEDS ORDERED: Ondansetron 4 MG Tab.DIS PO PRN (19:04)
[2023-03-31] MEDS ORDERED: Melatonin 3 MG Tab PO PRN (19:04)
[2023-03-31] MEDS ORDERED: Albuterol/Ipratropium 3.0-0.5 MG/3 ML Neb Soln NEB PRN (19:04)
[2023-03-31] MEDS ORDERED: Ondansetron 4 MG/2 ML SDV IV PRN (19:04)
[2023-03-31] MEDS: Acetaminophen 325 MG Tab PO PRN (19:37)
[2023-04-01] MEDS: Acetaminophen 325 MG Tab PO PRN (01:40)
[2023-04-01] MEDS: Acetaminophen/HYDROcodone 325-5 MG Tab PO PRN ×2 (04:57→19:54)
[2023-04-01 05:02] LABS: BASOPHILS PERCENT AUTO 0.1 % (0.1-1.3); HEMATOCRIT 34.4 % (38.4-49.7); IMMATURE GRAN ABSOLUTE AUTO 0.03 K/uL (0.00-0.23); IMMATURE GRAN PERCENT AUTO 0.4 % (0.0-0.7); LYMPHOCYTES ABSOLUTE AUTO 0.52 K/uL (0.8-3.3); LYMPHOCYTES PERCENT AUTO 7.8 % (11.4-47.7); MEAN CORPUSCULAR HEMOGLOBIN 33.2 pg (31.6-35.5); MEAN CORPUSCULAR HGB CONC 34.9 g/dL (31.6-35.5); MEAN CORPUSCULAR VOLUME 95.3 fL (81.4-99.0); MONOCYTES ABSOLUTE AUTO 0.29 K/uL (0.20-0.90); MONOCYTES PERCENT AUTO 4.3 % (3.3-12.6); NEUTROPHILS ABSOLUTE AUTO 5.85 K/uL (1.0-7.6); NEUTROPHILS PERCENT AUTO 87.4 % (40.0-78.1); PLATELET COUNT,PLT 175 K/uL (130-375); RED BLOOD CELL COUNT 3.61 M/uL (4.14-5.76); WHITE BLOOD CELL COUNT,WBC 6.7 K/uL (3.2-11.0)
[2023-04-01 05:16] LABS: CALCIUM 8.1 mg/dL (8.5-10.1); CREATININE 1.1 mg/dL (0.8-1.3); EST CRCL DRUG DOSING (CG) 63.56 mL/min; POTASSIUM,K 3.9 mmol/L (3.6-5.2)
[2023-04-01 05:18] LABS: ANION GAP 9.9 mmol/L (5.0-14.0); BASOPHILS ABSOLUTE AUTO 0.01 K/uL (0.00-0.10)
[2023-04-01] MEDS: Pantoprazole 40 MG Tab.CR PO SCH (08:46)
[2023-04-01] MEDS: Aspirin 81 MG Tab.EC PO SCH (08:46)
[2023-04-01] MEDS: Gabapentin 300 MG Cap PO SCH ×2 (08:47→20:00)
[2023-04-01] MEDS: Clopidogrel 75 MG Tab PO SCH (08:47)
[2023-04-01] MEDS: Metoprolol Tartrate 25 MG Tab PO SCH ×2 (08:47→20:00)
[2023-04-01] MEDS ORDERED: Pantoprazole 40 MG Tab.CR PO SCH (09:00)
[2023-04-01] MEDS ORDERED: amLODIPine 5 MG Tab PO SCH (09:00)
[2023-04-01] MEDS ORDERED: Isosorbide Mononitrate 30 MG Tab.ER PO SCH (09:00)
[2023-04-01] MEDS ORDERED: Ketorolac 15 MG/ML SDV IVPUSH ONE (10:42)
[2023-04-01] MEDS: Furosemide 40 MG/4 ML VIAL IVPUSH ONE ×2 (11:10→14:18)
[2023-04-01] MEDS: atorvaSTATin 20 MG Tab PO SCH (20:00)
[2023-04-02] MEDS ORDERED: Isosorbide Mononitrate 30 MG Tab.ER PO SCH (09:00)
[2023-04-02] MEDS: Gabapentin 300 MG Cap PO SCH ×2 (09:19→20:52)
[2023-04-02] MEDS: Clopidogrel 75 MG Tab PO SCH (09:19)
[2023-04-02] MEDS: Pantoprazole 40 MG Tab.CR PO SCH (09:19)
[2023-04-02] MEDS: Aspirin 81 MG Tab.EC PO SCH (09:19)
[2023-04-02] MEDS: Acetaminophen/HYDROcodone 325-5 MG Tab PO PRN ×2 (13:07→22:00)
[2023-04-02] MEDS: atorvaSTATin 20 MG Tab PO SCH (20:52)
[2023-04-03] MEDS: Pantoprazole 40 MG Tab.CR PO SCH (08:01)
[2023-04-03] MEDS ORDERED: Isosorbide Mononitrate 30 MG Tab.ER PO SCH (09:00)
[2023-04-03] MEDS: Sennosides/Docusate Sodium 50-8.6 MG Tab PO PRN ×2 (09:04→22:00)
[2023-04-03] MEDS: Clopidogrel 75 MG Tab PO SCH (09:05)
[2023-04-03] MEDS: Aspirin 81 MG Tab.EC PO SCH (09:05)
[2023-04-03] MEDS: Gabapentin 300 MG Cap PO SCH ×2 (09:05→22:00)
[2023-04-03] MEDS: Metoprolol Tartrate 25 MG Tab PO SCH ×3 (09:05→22:01)
[2023-04-03] MEDS ORDERED: Isosorbide Mononitrate 30 MG Tab.ER PO ONE (11:00)
[2023-04-03] MEDS: Acetaminophen/HYDROcodone 325-5 MG Tab PO PRN ×2 (13:47→22:01)
[2023-04-03] MEDS: atorvaSTATin 20 MG Tab PO SCH (22:01)
[2023-04-04] MEDS: Pantoprazole 40 MG Tab.CR PO SCH (07:18)
[2023-04-04] MEDS ORDERED: Isosorbide Mononitrate 30 MG Tab.ER PO SCH ×2 (07:30)
[2023-04-04] MEDS: Aspirin 81 MG Tab.EC PO SCH (08:57)
[2023-04-04] MEDS: Metoprolol Tartrate 25 MG Tab PO SCH (08:57)
[2023-04-04] MEDS: Gabapentin 300 MG Cap PO SCH (08:58)
[2023-04-04] MEDS: Clopidogrel 75 MG Tab PO SCH (08:58)
[2023-04-04 11:38] VITALS: BP 117/62; PULSE 70
[2023-04-04] MEDS: Acetaminophen/HYDROcodone 325-5 MG Tab PO PRN (12:00)
== END 2023-04-04 14:15 | disposition home or self-care (01) | DRG 291 ==
LOC: JP.ED 12:16 → JP.MS 18:34
PROVIDERS: ADMIT Registered Nurse; ATTEND Hospitalist
DX: I11.0 Hypertensive heart disease with heart failure (principal); I50.43 Acute on chronic combined systolic (congestive) and diastolic (congestive) heart failure; I95.2 Hypotension due to drugs; I25.10 Atherosclerotic heart disease of native coronary artery without angina pectoris; E78.00 Pure hypercholesterolemia, unspecified; T50.995A Adverse effect of other drugs, medicaments and biological substances, initial encounter; H91.90 Unspecified hearing loss, unspecified ear; K21.9 Gastro-esophageal reflux disease without esophagitis; G89.29 Other chronic pain; M54.9 Dorsalgia, unspecified; R13.10 Dysphagia, unspecified; Z98.49 Cataract extraction status, unspecified eye; Z90.49 Acquired absence of other specified parts of digestive tract; Z95.1 Presence of aortocoronary bypass graft; Z79.82 Long term (current) use of aspirin; Z98.890 Other specified postprocedural states; Z88.0 Allergy status to penicillin; Z86.718 Personal history of other venous thrombosis and embolism; I25.2 Old myocardial infarction; Z95.5 Presence of coronary angioplasty implant and graft; Z87.01 Personal history of pneumonia (recurrent); Z88.8 Allergy status to other drugs, medicaments and biological substances; Z91.041 Radiographic dye allergy status; Z79.899 Other long term (current) drug therapy; Z87.891 Personal history of nicotine dependence; Z11.52 Encounter for screening for COVID-19; Z98.1 Arthrodesis status
CPT/HCPCS: 0241U; 36415; 71045; 71045-26; 71275; 80048; 80053; 83605; 83880; 84484; 85025; 85379; 93005; 93010; 93306; 94640; 96374; 96375; 97110-GP; 97161-GP; 97530-GP; 99285; 99285-25; A9270-GY; J1200; J1885; J1940; J2270; J2920; J3490; J7030; J7620; Q9967; U0002

== ENCOUNTER 2023-04-12 01:25 | Inpatient (IN) | payer MEDICARE ==
[2023-04-12] MEDS ORDERED: Sodium Chloride 0.9% 10 ML Syringe FLUSH PRN (01:36)
[2023-04-12] MEDS ORDERED: Acetaminophen 1,000 MG in Premix Bag 1 BAG IV ONE (01:50)
[2023-04-12 01:51] LABS: BASOPHILS ABSOLUTE AUTO 0.05 K/uL (0.00-0.10); BASOPHILS PERCENT AUTO 0.5 % (0.1-1.3); EOSINOPHILS ABSOLUTE AUTO 0.04 K/uL (0.00-0.40); EOSINOPHILS PERCENT AUTO 0.4 % (0.0-5.4); HEMATOCRIT 37.3 % (38.4-49.7); HEMOGLOBIN 13.1 g/dL (12.9-16.9); IMMATURE GRAN ABSOLUTE AUTO 0.03 K/uL (0.00-0.23); IMMATURE GRAN PERCENT AUTO 0.3 % (0.0-0.7); LYMPHOCYTES ABSOLUTE AUTO 1.07 K/uL (0.8-3.3); LYMPHOCYTES PERCENT AUTO 11.4 % (11.4-47.7); MEAN CORPUSCULAR HEMOGLOBIN 33.4 pg (31.6-35.5); MEAN CORPUSCULAR HGB CONC 35.1 g/dL (31.6-35.5); MEAN CORPUSCULAR VOLUME 95.2 fL (81.4-99.0); MONOCYTES ABSOLUTE AUTO 0.81 K/uL (0.20-0.90); MONOCYTES PERCENT AUTO 8.7 % (3.3-12.6); NEUTROPHILS ABSOLUTE AUTO 7.36 K/uL (1.0-7.6); NEUTROPHILS PERCENT AUTO 78.7 % (40.0-78.1); PLATELET COUNT,PLT 183 K/uL (130-375); RED BLOOD CELL COUNT 3.92 M/uL (4.14-5.76); WHITE BLOOD CELL COUNT,WBC 9.4 K/uL (3.2-11.0)
[2023-04-12] MEDS ORDERED: Ondansetron 4 MG/2 ML SDV IVPUSH ONE (01:53)
[2023-04-12] MEDS ORDERED: Nitroglycerin 0.4 MG Tab.SL SL ONE (01:56)
[2023-04-12] MEDS ORDERED: Naloxone 0.4 MG/ML SDV IVPUSH PRN (02:04)
[2023-04-12] MEDS ORDERED: Morphine 2 MG/ML SYRINGE IVPUSH ONE (02:04)
[2023-04-12 02:08] LABS: A/G RATIO 1.1 (1.2-2.2); ALANINE AMINOTRANSFERASE,ALT 11 U/L (12-78); ALBUMIN 3.4 g/dL (3.4-5.0); ALKALINE PHOSPHATASE 70 U/L (46-116); ASPARTATE AMNIOTRANSFERASE,AST 20 U/L (15-37); BILIRUBIN TOTAL 0.9 mg/dL (0.2-1.0); BLOOD UREA NITROGEN,BUN 17 mg/dL (7-18); CALCIUM 8.5 mg/dL (8.5-10.1); CARBON DIOXIDE,CO2 26 mmol/L (21-32); CHLORIDE,CL 97 mmol/L (100-108); CREATININE 1.2 mg/dL (0.8-1.3); ESTIMATED GFR 62 mL/min (>60); GLUCOSE RANDOM 189 mg/dL (74-106); POTASSIUM,K 3.8 mmol/L (3.6-5.2); PROTEIN TOTAL,TP 6.5 g/dL (6.4-8.2); SODIUM,NA 135 mmol/L (140-148)
[2023-04-12] MEDS: Sodium Chloride 0.9% 1,000 ML IV SCH ×3 (02:08→10:08)
[2023-04-12 02:09] LABS: ANION GAP 15.8 mmol/L (5.0-14.0)
[2023-04-12 02:43] LABS: CORONAVIRUS COVID-19 NAA NEGATIVE (NEGATIVE); INFLUENZA A NAA NEGATIVE (NEGATIVE); INFLUENZA B NAA NEGATIVE (NEGATIVE); RESPIRATORY SYNCYTIAL VIR NAA NEGATIVE (NEGATIVE)
[2023-04-12] MEDS ORDERED: Sodium Chloride 0.9% 500 ML IV ONE (02:59)
[2023-04-12 04:30] LABS: APPEARANCE,URINE CLEAR (CLEAR); BILIRUBIN,URINE SMALL (NEGATIVE); COLOR,URINE YELLOW (YELLOW); GLUCOSE,URINE NEGATIVE (NEGATIVE); KETONES,URINE 40 mg/dL (NEGATIVE); LEUKOCYTE ESTERASE,URINE NEGATIVE (NEGATIVE); NITRITE,URINE NEGATIVE (NEGATIVE); OCCULT BLOOD,URINE TRACE-LYSED (NEGATIVE); PH,URINE 6.5 (5.0-8.0); PROTEIN,URINE 100 mg/dL (NEGATIVE)
[2023-04-12 05:00] LABS: AMORPHOUS SEDIMENT,URINE NOT SEEN; BACTERIA,URINE MANY; EPITHELIAL CELLS,URINE FEW; MUCUS,URINE NOT SEEN; WBC,URINE 0-5 (0-5)
[2023-04-12] MEDS ORDERED: Melatonin 3 MG Tab PO PRN (05:05)
[2023-04-12] MEDS ORDERED: Isosorbide Mononitrate 30 MG Tab.ER (PTOM) PO SCH (07:30)
[2023-04-12] MEDS: Acetaminophen/HYDROcodone 325-5 MG Tab PO PRN ×3 (07:43→22:32)
[2023-04-12] MEDS: Gabapentin 300 MG Cap PO SCH ×2 (08:34→20:42)
[2023-04-12] MEDS: Metoprolol Tartrate 25 MG Tab (PTOM) PO SCH ×2 (08:35→20:43)
[2023-04-12] MEDS: Clopidogrel 75 MG Tab (PTOM) PO SCH (08:36)
[2023-04-12] MEDS: Pantoprazole 40 MG Tab.CR (PTOM) PO SCH (08:36)
[2023-04-12] MEDS ORDERED: Benzocaine/Cetylpyridinium/Menthol Lozenge MUCMEM PRN (09:01)
[2023-04-12] MEDS ORDERED: Ketorolac 15 MG/ML SDV IVPUSH ONE (09:15)
[2023-04-12] MEDS: Nystatin Susp 100,000 Unit/ML 5 ML UD Cup PO SCH ×3 (10:07→22:32)
[2023-04-12] MEDS: Aspirin 81 MG Tab.EC PO SCH (10:07)
[2023-04-12] MEDS: Acetaminophen 325 MG Tab PO PRN ×2 (12:37→20:41)
[2023-04-12] MEDS ORDERED: Sodium Chloride 0.9% 1,000 ML IV SCH (17:15)
[2023-04-12] MEDS: atorvaSTATin 20 MG Tab PO SCH (20:42)
[2023-04-13] MEDS: Acetaminophen 325 MG Tab PO PRN ×2 (01:02→21:22)
[2023-04-13] MEDS: Acetaminophen/HYDROcodone 325-5 MG Tab PO PRN ×2 (05:22→18:43)
[2023-04-13] MEDS: Nystatin Susp 100,000 Unit/ML 5 ML UD Cup PO SCH ×4 (05:38→21:12)
[2023-04-13 06:03] LABS: HEMATOCRIT 36.5 % (38.4-49.7); HEMOGLOBIN 12.6 g/dL (12.9-16.9); MEAN CORPUSCULAR HEMOGLOBIN 32.9 pg (31.6-35.5); MEAN CORPUSCULAR HGB CONC 34.5 g/dL (31.6-35.5); MEAN CORPUSCULAR VOLUME 95.3 fL (81.4-99.0); RED BLOOD CELL COUNT 3.83 M/uL (4.14-5.76); WHITE BLOOD CELL COUNT,WBC 6.5 K/uL (3.2-11.0)
[2023-04-13 06:26] LABS: ANION GAP 10.6 mmol/L (5.0-14.0); CALCIUM 8.1 mg/dL (8.5-10.1); EST CRCL DRUG DOSING (CG) 69.91 mL/min; POTASSIUM,K 3.6 mmol/L (3.6-5.2)
[2023-04-13] MEDS: Gabapentin 300 MG Cap PO SCH ×2 (08:19→21:12)
[2023-04-13] MEDS: Metoprolol Tartrate 25 MG Tab (PTOM) PO SCH (08:19)
[2023-04-13] MEDS: Pantoprazole 40 MG Tab.CR (PTOM) PO SCH (08:19)
[2023-04-13] MEDS: Aspirin 81 MG Tab.EC PO SCH (08:19)
[2023-04-13] MEDS: Clopidogrel 75 MG Tab (PTOM) PO SCH (08:20)
[2023-04-13] MEDS: Sodium Chloride 0.9% 1,000 ML IV SCH (08:24)
[2023-04-13] MEDS ORDERED: Isosorbide Mononitrate 30 MG Tab.ER PO SCH (09:00)
[2023-04-13] MEDS: Midodrine 5 MG Tab PO SCH ×3 (09:31→16:41)
[2023-04-13] MEDS: atorvaSTATin 20 MG Tab PO SCH (21:12)
[2023-04-13] MEDS: Metoprolol Tartrate 25 MG Tab PO SCH (21:13)
[2023-04-14] MEDS: Acetaminophen 325 MG Tab PO PRN ×2 (02:28→23:45)
[2023-04-14 04:54] LABS: CALCIUM 8.1 mg/dL (8.5-10.1); CREATININE 0.8 mg/dL (0.8-1.3); EST CRCL DRUG DOSING (CG) 87.39 mL/min; MAGNESIUM 1.6 mg/dL (1.8-2.4); POTASSIUM,K 3.9 mmol/L (3.6-5.2)
[2023-04-14 05:03] LABS: ANION GAP 12.9 mmol/L (5.0-14.0)
[2023-04-14] MEDS: Nystatin Susp 100,000 Unit/ML 5 ML UD Cup PO SCH ×4 (05:37→21:51)
[2023-04-14] MEDS: Ibuprofen 600 MG Tab PO PRN ×2 (05:37→20:41)
[2023-04-14 07:24] LABS: BASOPHILS ABSOLUTE AUTO 0.04 K/uL (0.00-0.10); BASOPHILS PERCENT AUTO 0.6 % (0.1-1.3); EOSINOPHILS PERCENT AUTO 0.3 % (0.0-5.4); HEMATOCRIT 32.9 % (38.4-49.7); HEMOGLOBIN 11.8 g/dL (12.9-16.9); IMMATURE GRAN PERCENT AUTO 0.3 % (0.0-0.7); LYMPHOCYTES ABSOLUTE AUTO 0.69 K/uL (0.8-3.3); LYMPHOCYTES PERCENT AUTO 10.2 % (11.4-47.7); MEAN CORPUSCULAR HEMOGLOBIN 33.3 pg (31.6-35.5); MEAN CORPUSCULAR HGB CONC 35.9 g/dL (31.6-35.5); MEAN CORPUSCULAR VOLUME 92.9 fL (81.4-99.0); MONOCYTES ABSOLUTE AUTO 0.74 K/uL (0.20-0.90); MONOCYTES PERCENT AUTO 10.9 % (3.3-12.6); NEUTROPHILS ABSOLUTE AUTO 5.28 K/uL (1.0-7.6); NEUTROPHILS PERCENT AUTO 77.7 % (40.0-78.1); PLATELET COUNT,PLT 146 K/uL (130-375); RED BLOOD CELL COUNT 3.54 M/uL (4.14-5.76); WHITE BLOOD CELL COUNT,WBC 6.8 K/uL (3.2-11.0)
[2023-04-14 07:25] LABS: EOSINOPHILS ABSOLUTE AUTO 0.02 K/uL (0.00-0.40); IMMATURE GRAN ABSOLUTE AUTO 0.02 K/uL (0.00-0.23)
[2023-04-14] MEDS ORDERED: Midodrine 5 MG Tab PO SCH (07:30)
[2023-04-14] MEDS: Pantoprazole 40 MG Tab.CR PO SCH (07:46)
[2023-04-14] MEDS: Ondansetron 4 MG/2 ML SDV IV PRN (07:53)
[2023-04-14] MEDS: Magnesium Sulfate/Water 2 GM in Premix Bag 1 BAG IV SCH ×2 (10:47→14:38)
[2023-04-14] MEDS: Aspirin 81 MG Tab.EC PO SCH (11:35)
[2023-04-14] MEDS: Clopidogrel 75 MG Tab PO SCH (11:35)
[2023-04-14] MEDS: Midodrine 5 MG Tab PO SCH ×2 (11:35→16:07)
[2023-04-14] MEDS: Doxycycline 100 MG Cap PO SCH ×2 (11:36→20:33)
[2023-04-14] MEDS: Gabapentin 300 MG Cap PO SCH ×2 (11:36→20:34)
[2023-04-14] MEDS: Metoprolol Tartrate 25 MG Tab PO SCH (15:37)
[2023-04-14] MEDS: atorvaSTATin 20 MG Tab PO SCH (20:33)
[2023-04-15] MEDS: Nystatin Susp 100,000 Unit/ML 5 ML UD Cup PO SCH ×4 (05:29→21:17)
[2023-04-15] MEDS: Acetaminophen 325 MG Tab PO PRN ×2 (07:51→19:34)
[2023-04-15] MEDS: Midodrine 5 MG Tab PO SCH ×3 (07:52→15:53)
[2023-04-15] MEDS: Pantoprazole 40 MG Tab.CR PO SCH (07:52)
[2023-04-15] MEDS: Doxycycline 100 MG Cap PO SCH ×2 (08:04→21:17)
[2023-04-15] MEDS: Clopidogrel 75 MG Tab PO SCH (08:04)
[2023-04-15] MEDS: Aspirin 81 MG Tab.EC PO SCH (08:04)
[2023-04-15] MEDS: Gabapentin 300 MG Cap PO SCH ×2 (08:04→21:16)
[2023-04-15] MEDS: Acetaminophen/HYDROcodone 325-5 MG Tab PO PRN (10:49)
[2023-04-15] MEDS: Ondansetron 4 MG Tab.DIS PO PRN ×2 (14:59→21:20)
[2023-04-15] MEDS: atorvaSTATin 20 MG Tab PO SCH (21:16)
[2023-04-15] MEDS: Ibuprofen 600 MG Tab PO PRN (21:21)
[2023-04-16] MEDS: Ondansetron 4 MG/2 ML SDV IV PRN (04:39)
[2023-04-16] MEDS: Acetaminophen 325 MG Tab PO PRN ×2 (04:39→23:52)
[2023-04-16] MEDS: Nystatin Susp 100,000 Unit/ML 5 ML UD Cup PO SCH ×4 (05:39→21:21)
[2023-04-16 06:10] LABS: HEMATOCRIT 36.2 % (38.4-49.7); MEAN CORPUSCULAR HEMOGLOBIN 32.5 pg (31.6-35.5); MEAN CORPUSCULAR HGB CONC 35.9 g/dL (31.6-35.5); MEAN CORPUSCULAR VOLUME 90.5 fL (81.4-99.0); WHITE BLOOD CELL COUNT,WBC 7.9 K/uL (3.2-11.0)
[2023-04-16 06:36] LABS: A/G RATIO 1.1 (1.2-2.2); ALANINE AMINOTRANSFERASE,ALT 12 U/L (12-78); ALBUMIN 3.2 g/dL (3.4-5.0); ALKALINE PHOSPHATASE 65 U/L (46-116); ASPARTATE AMNIOTRANSFERASE,AST 25 U/L (15-37); BILIRUBIN TOTAL 1.1 mg/dL (0.2-1.0); BLOOD UREA NITROGEN,BUN 21 mg/dL (7-18); CALCIUM 8.3 mg/dL (8.5-10.1); CARBON DIOXIDE,CO2 28 mmol/L (21-32); CHLORIDE,CL 90 mmol/L (100-108); CREATININE 0.9 mg/dL (0.8-1.3); EST CRCL DRUG DOSING (CG) 77.68 mL/min; ESTIMATED GFR 88 mL/min (>60); GLUCOSE RANDOM 107 mg/dL (74-106); POTASSIUM,K 3.5 mmol/L (3.6-5.2); PROTEIN TOTAL,TP 6.1 g/dL (6.4-8.2); SODIUM,NA 126 mmol/L (140-148)
[2023-04-16 06:43] LABS: ANION GAP 11.5 mmol/L (5.0-14.0)
[2023-04-16] MEDS: Midodrine 5 MG Tab PO SCH ×3 (07:32→17:37)
[2023-04-16] MEDS: Pantoprazole 40 MG Tab.CR PO SCH (07:32)
[2023-04-16] MEDS ORDERED: Potassium Chloride 20 MEQ Tab.ER PO ONE (09:00)
[2023-04-16] MEDS: Aspirin 81 MG Tab.EC PO SCH (09:39)
[2023-04-16] MEDS: Gabapentin 300 MG Cap PO SCH ×2 (09:39→21:21)
[2023-04-16] MEDS: Doxycycline 100 MG Cap PO SCH ×2 (09:40→21:21)
[2023-04-16] MEDS: Clopidogrel 75 MG Tab PO SCH (09:40)
[2023-04-16] MEDS: Acetaminophen/HYDROcodone 325-5 MG Tab PO PRN (18:46)
[2023-04-16] MEDS: atorvaSTATin 20 MG Tab PO SCH (21:21)
[2023-04-17] MEDS: Nystatin Susp 100,000 Unit/ML 5 ML UD Cup PO SCH ×4 (05:39→21:11)
[2023-04-17] MEDS: Acetaminophen/HYDROcodone 325-5 MG Tab PO PRN ×2 (05:52→21:11)
[2023-04-17 06:41] LABS: CALCIUM 8.4 mg/dL (8.5-10.1); CREATININE 0.8 mg/dL (0.8-1.3); EST CRCL DRUG DOSING (CG) 86.97 mL/min; POTASSIUM,K 3.8 mmol/L (3.6-5.2)
[2023-04-17 06:43] LABS: ANION GAP 9.8 mmol/L (5.0-14.0)
[2023-04-17] MEDS: Pantoprazole 40 MG Tab.CR PO SCH (09:13)
[2023-04-17] MEDS: Midodrine 5 MG Tab PO SCH ×3 (09:13→16:51)
[2023-04-17] MEDS: Aspirin 81 MG Tab.EC PO SCH (09:13)
[2023-04-17] MEDS: Clopidogrel 75 MG Tab PO SCH (09:13)
[2023-04-17] MEDS: Doxycycline 100 MG Cap PO SCH ×2 (09:14→20:10)
[2023-04-17] MEDS: Gabapentin 300 MG Cap PO SCH ×2 (09:14→20:10)
[2023-04-17] MEDS: atorvaSTATin 20 MG Tab PO SCH (20:10)
[2023-04-18] MEDS: Nystatin Susp 100,000 Unit/ML 5 ML UD Cup PO SCH ×5 (06:26→21:27)
[2023-04-18] MEDS: Pantoprazole 40 MG Tab.CR PO SCH (07:11)
[2023-04-18] MEDS: Midodrine 5 MG Tab PO SCH ×3 (07:11→15:21)
[2023-04-18] MEDS: Gabapentin 300 MG Cap PO SCH (08:19)
[2023-04-18] MEDS: Doxycycline 100 MG Cap PO SCH ×2 (08:19→20:47)
[2023-04-18] MEDS: Clopidogrel 75 MG Tab PO SCH (08:19)
[2023-04-18] MEDS: Aspirin 81 MG Tab.EC PO SCH (08:19)
[2023-04-18] MEDS: Ibuprofen 600 MG Tab PO PRN ×2 (10:20→17:51)
[2023-04-18] MEDS: Acetaminophen 325 MG Tab PO PRN ×2 (10:20→17:50)
[2023-04-18 17:38] LABS: BASOPHILS ABSOLUTE AUTO 0.07 K/uL (0.00-0.10); BASOPHILS PERCENT AUTO 0.6 % (0.1-1.3); EOSINOPHILS ABSOLUTE AUTO 0.22 K/uL (0.00-0.40); HEMATOCRIT 34.7 % (38.4-49.7); HEMOGLOBIN 12.3 g/dL (12.9-16.9); IMMATURE GRAN ABSOLUTE AUTO 0.07 K/uL (0.00-0.23); IMMATURE GRAN PERCENT AUTO 0.6 % (0.0-0.7); LYMPHOCYTES ABSOLUTE AUTO 1.29 K/uL (0.8-3.3); LYMPHOCYTES PERCENT AUTO 11.8 % (11.4-47.7); MEAN CORPUSCULAR HEMOGLOBIN 33.1 pg (31.6-35.5); MEAN CORPUSCULAR HGB CONC 35.4 g/dL (31.6-35.5); MEAN CORPUSCULAR VOLUME 93.3 fL (81.4-99.0); NEUTROPHILS ABSOLUTE AUTO 8.05 K/uL (1.0-7.6); PLATELET COUNT,PLT 227 K/uL (130-375); RED BLOOD CELL COUNT 3.72 M/uL (4.14-5.76); WHITE BLOOD CELL COUNT,WBC 10.9 K/uL (3.2-11.0)
[2023-04-18 17:58] LABS: A/G RATIO 1.1 (1.2-2.2); ALANINE AMINOTRANSFERASE,ALT 19 U/L (12-78); ALKALINE PHOSPHATASE 88 U/L (46-116); ASPARTATE AMNIOTRANSFERASE,AST 22 U/L (15-37); BILIRUBIN TOTAL 0.7 mg/dL (0.2-1.0); BLOOD UREA NITROGEN,BUN 41 mg/dL (7-18); CALCIUM 8.3 mg/dL (8.5-10.1); CARBON DIOXIDE,CO2 31 mmol/L (21-32); CHLORIDE,CL 94 mmol/L (100-108); CREATININE 1.2 mg/dL (0.8-1.3); EST CRCL DRUG DOSING (CG) 57.98 mL/min; ESTIMATED GFR 62 mL/min (>60); GLUCOSE RANDOM 116 mg/dL (74-106); POTASSIUM,K 3.8 mmol/L (3.6-5.2); PROTEIN TOTAL,TP 5.8 g/dL (6.4-8.2); SODIUM,NA 128 mmol/L (140-148)
[2023-04-18 18:16] LABS: ANION GAP 6.8 mmol/L (5.0-14.0); C-REACTIVE PROTEIN < 0.50 mg/dL (<0.50)
[2023-04-18] MEDS: Gabapentin 100 MG Cap PO SCH (20:46)
[2023-04-18] MEDS: atorvaSTATin 20 MG Tab PO SCH (20:46)
[2023-04-18 21:05] LABS: APPEARANCE,URINE CLEAR (CLEAR); BILIRUBIN,URINE NEGATIVE (NEGATIVE); COLOR,URINE YELLOW (YELLOW); GLUCOSE,URINE NEGATIVE (NEGATIVE); KETONES,URINE NEGATIVE (NEGATIVE); LEUKOCYTE ESTERASE,URINE NEGATIVE (NEGATIVE); NITRITE,URINE NEGATIVE (NEGATIVE); OCCULT BLOOD,URINE NEGATIVE (NEGATIVE); PH,URINE 5.5 (5.0-8.0); PROTEIN,URINE NEGATIVE (NEGATIVE); UROBILINOGEN,URINE 0.2 EU/dL (0.2-1.0)
[2023-04-18 21:11] LABS: AMORPHOUS SEDIMENT,URINE NOT SEEN; BACTERIA,URINE FEW; EPITHELIAL CELLS,URINE FEW; MUCUS,URINE NOT SEEN; RBC,URINE 0-5 (0-5); WBC,URINE NOT SEEN (0-5)
[2023-04-18] MEDS: Acetaminophen/HYDROcodone 325-5 MG Tab PO PRN (21:18)
[2023-04-18 21:50] LABS: BASE EXCESS ARTERIAL 4.9 mm/L; BICARBONATE,ARTERIAL 26.5 mmol/L (22.0-26.0); CARBOXYHEMOGLOBIN 2.1 % (0.0-1.6); METHEMOGLOBIN 0.5 %; O2 SATURATION ARTERIAL 97.9 % (95.0-98.0); OXYHEMOGLOBIN 95.4 %; PCO2 ARTERIAL 29.9 mmHg (35.0-42.0); PO2 ARTERIAL 84.7 mmHg (75.0-100.0); TOTAL HEMOGLOBIN 12.7 g/dL (13.5-18.0)
[2023-04-18] MEDS ORDERED: diphenhydrAMINE 50 MG/ML SDV IVPUSH STA (22:26)
[2023-04-18] MEDS ORDERED: Iopamidol 755 Mg/ML 100 ML Bottle IV STA (23:02)
[2023-04-18] MEDS ORDERED: Sodium Chloride 0.9% 10 ML Syringe FLUSH STA (23:03)
[2023-04-18] MEDS ORDERED: Sodium Chloride 0.9% 100 ML IV STA (23:03)
[2023-04-19] MEDS: metroNIDAZOLE/Normal Saline 500 MG in Premix Bag 1 BAG IV SCH ×2 (01:24→08:33)
[2023-04-19] MEDS: cefTRIAXone 1 GM in Sodium Chloride 0.9% 50 ML IV SCH ×2 (01:24→20:37)
[2023-04-19 05:56] LABS: HEMATOCRIT 32.6 % (38.4-49.7); HEMOGLOBIN 11.7 g/dL (12.9-16.9); MEAN CORPUSCULAR HEMOGLOBIN 33.5 pg (31.6-35.5); MEAN CORPUSCULAR HGB CONC 35.9 g/dL (31.6-35.5); MEAN CORPUSCULAR VOLUME 93.4 fL (81.4-99.0); RED BLOOD CELL COUNT 3.49 M/uL (4.14-5.76); WHITE BLOOD CELL COUNT,WBC 7.7 K/uL (3.2-11.0)
[2023-04-19] MEDS: Nystatin Susp 100,000 Unit/ML 5 ML UD Cup PO SCH ×4 (05:57→23:18)
[2023-04-19 06:11] LABS: CALCIUM 8.3 mg/dL (8.5-10.1); CREATININE 1.2 mg/dL (0.8-1.3); EST CRCL DRUG DOSING (CG) 57.98 mL/min; POTASSIUM,K 4.1 mmol/L (3.6-5.2)
[2023-04-19 06:14] LABS: ANION GAP 6.1 mmol/L (5.0-14.0)
[2023-04-19] MEDS: Acetaminophen 325 MG Tab PO PRN (07:22)
[2023-04-19] MEDS: Midodrine 5 MG Tab PO SCH ×3 (07:23→16:17)
[2023-04-19] MEDS: Pantoprazole 40 MG Tab.CR PO SCH (07:24)
[2023-04-19] MEDS: Gabapentin 100 MG Cap PO SCH ×2 (08:32→20:33)
[2023-04-19] MEDS: Clopidogrel 75 MG Tab PO SCH (08:32)
[2023-04-19] MEDS: Aspirin 81 MG Tab.EC PO SCH (08:33)
[2023-04-19] MEDS: Acetaminophen/HYDROcodone 325-5 MG Tab PO PRN ×3 (08:35→20:31)
[2023-04-19] MEDS: Clindamycin in 0.9 % Sod Chlor 600 MG in Premix Bag 1 BAG IV SCH ×4 (14:39→19:49)
[2023-04-19] MEDS ORDERED: Naloxone 0.4 MG/ML SDV IVPUSH PRN (17:23)
[2023-04-19] MEDS: atorvaSTATin 20 MG Tab PO SCH (20:32)
[2023-04-20] MEDS: Acetaminophen/HYDROcodone 325-5 MG Tab PO PRN ×3 (02:31→18:09)
[2023-04-20] MEDS: Clindamycin in 0.9 % Sod Chlor 600 MG in Premix Bag 1 BAG IV SCH ×8 (02:32→19:39)
[2023-04-20] MEDS: Nystatin Susp 100,000 Unit/ML 5 ML UD Cup PO SCH ×4 (06:08→21:01)
[2023-04-20] MEDS: Midodrine 5 MG Tab PO SCH ×3 (07:41→17:17)
[2023-04-20] MEDS: Pantoprazole 40 MG Tab.CR PO SCH (07:43)
[2023-04-20] MEDS: Ibuprofen 600 MG Tab PO PRN ×2 (07:47→18:09)
[2023-04-20] MEDS: Gabapentin 100 MG Cap PO SCH ×2 (09:27→21:01)
[2023-04-20] MEDS: Aspirin 81 MG Tab.EC PO SCH (09:27)
[2023-04-20] MEDS: Clopidogrel 75 MG Tab PO SCH (09:28)
[2023-04-20] MEDS: Magnesium Hydroxide 400 MG/5 ML Susp 30 ML Cup PO PRN (09:30)
[2023-04-20] MEDS ORDERED: Polyethylene Glycol 3350 Powder 17 GM Packet PO ONE (11:21)
[2023-04-20] MEDS ORDERED: Sodium Phosphate,Monobasic/Sodium Phosphate,Dibasic Enema 133 ML Bottle RECTAL PRN (11:40)
[2023-04-20] MEDS ORDERED: Bisacodyl 10 MG Supp RECTAL ONE (11:45)
[2023-04-20] MEDS: cefTRIAXone 1 GM in Sodium Chloride 0.9% 50 ML IV SCH (21:00)
[2023-04-20] MEDS: atorvaSTATin 20 MG Tab PO SCH (21:01)
[2023-04-21] MEDS: Acetaminophen/HYDROcodone 325-5 MG Tab PO PRN ×3 (01:33→21:05)
[2023-04-21] MEDS: Clindamycin in 0.9 % Sod Chlor 600 MG in Premix Bag 1 BAG IV SCH ×8 (01:36→19:29)
[2023-04-21] MEDS: Morphine 10 MG/0.5 ML Oral Syringe PO PRN ×2 (02:15→05:35)
[2023-04-21] MEDS: Nystatin Susp 100,000 Unit/ML 5 ML UD Cup PO SCH ×4 (05:31→21:02)
[2023-04-21] MEDS: Midodrine 5 MG Tab PO SCH ×3 (07:33→16:07)
[2023-04-21] MEDS: Pantoprazole 40 MG Tab.CR PO SCH (07:33)
[2023-04-21] MEDS: Gabapentin 100 MG Cap PO SCH ×2 (09:52→21:02)
[2023-04-21] MEDS: Aspirin 81 MG Tab.EC PO SCH (09:52)
[2023-04-21] MEDS: Clopidogrel 75 MG Tab PO SCH (09:52)
[2023-04-21] MEDS: Hydrocortisone 1% Crm 30 GM Tube TOP SCH (21:01)
[2023-04-21] MEDS: cefTRIAXone 1 GM in Sodium Chloride 0.9% 50 ML IV SCH (21:01)
[2023-04-21] MEDS: atorvaSTATin 20 MG Tab PO SCH (21:02)
[2023-04-21] MEDS: Sennosides/Docusate Sodium 50-8.6 MG Tab PO PRN (21:05)
[2023-04-22] MEDS: Clindamycin in 0.9 % Sod Chlor 600 MG in Premix Bag 1 BAG IV SCH ×8 (02:38→19:46)
[2023-04-22 05:05] LABS: HEMATOCRIT 34.7 % (38.4-49.7); HEMOGLOBIN 12.1 g/dL (12.9-16.9); MEAN CORPUSCULAR HEMOGLOBIN 33.2 pg (31.6-35.5); MEAN CORPUSCULAR HGB CONC 34.9 g/dL (31.6-35.5); MEAN CORPUSCULAR VOLUME 95.1 fL (81.4-99.0); RED BLOOD CELL COUNT 3.65 M/uL (4.14-5.76); WHITE BLOOD CELL COUNT,WBC 9.1 K/uL (3.2-11.0)
[2023-04-22 05:19] LABS: CALCIUM 8.2 mg/dL (8.5-10.1); CREATININE 0.9 mg/dL (0.8-1.3); EST CRCL DRUG DOSING (CG) 77.31 mL/min; MAGNESIUM 1.7 mg/dL (1.8-2.4); POTASSIUM,K 4.6 mmol/L (3.6-5.2)
[2023-04-22 05:21] LABS: ANION GAP 8.6 mmol/L (5.0-14.0)
[2023-04-22] MEDS: Nystatin Susp 100,000 Unit/ML 5 ML UD Cup PO SCH ×4 (05:50→20:59)
[2023-04-22] MEDS: Acetaminophen/HYDROcodone 325-5 MG Tab PO PRN ×3 (08:11→22:59)
[2023-04-22] MEDS: Sennosides/Docusate Sodium 50-8.6 MG Tab PO PRN (08:12)
[2023-04-22] MEDS: Ibuprofen 600 MG Tab PO PRN ×2 (08:12→14:50)
[2023-04-22] MEDS: Pantoprazole 40 MG Tab.CR PO SCH (08:12)
[2023-04-22] MEDS: Midodrine 5 MG Tab PO SCH ×3 (08:12→17:32)
[2023-04-22] MEDS: Hydrocortisone 1% Crm 30 GM Tube TOP SCH ×3 (08:13→21:00)
[2023-04-22] MEDS: Aspirin 81 MG Tab.EC PO SCH (08:13)
[2023-04-22] MEDS: Gabapentin 100 MG Cap PO SCH ×2 (08:13→21:05)
[2023-04-22] MEDS: Clopidogrel 75 MG Tab PO SCH (08:13)
[2023-04-22] MEDS ORDERED: Magnesium Sulfate/Water 2 GM in Premix Bag 1 BAG IV SCH (09:00)
[2023-04-22] MEDS: Magnesium Oxide 400 MG Tab PO SCH ×2 (10:00→21:05)
[2023-04-22] MEDS ORDERED: methylPREDNISolone Sodium Succinate 40 MG/1 ML SDV IVPUSH ONE (11:45)
[2023-04-22] MEDS: Levofloxacin/Dextrose 5%-Water 750 MG in Premix Bag 1 BAG IV SCH (11:57)
[2023-04-22] MEDS: Acetaminophen 325 MG Tab PO PRN ×2 (14:50→19:45)
[2023-04-22] MEDS: Morphine 10 MG/0.5 ML Oral Syringe PO PRN (19:45)
[2023-04-22] MEDS: atorvaSTATin 20 MG Tab PO SCH (20:59)
[2023-04-23] MEDS: Clindamycin in 0.9 % Sod Chlor 600 MG in Premix Bag 1 BAG IV SCH ×6 (01:20→14:07)
[2023-04-23] MEDS: Acetaminophen 325 MG Tab PO PRN ×2 (01:28→20:21)
[2023-04-23] MEDS: Ibuprofen 600 MG Tab PO PRN ×3 (01:29→20:18)
[2023-04-23] MEDS: Nystatin Susp 100,000 Unit/ML 5 ML UD Cup PO SCH (05:08)
[2023-04-23] MEDS: Clopidogrel 75 MG Tab PO SCH (08:48)
[2023-04-23] MEDS: Aspirin 81 MG Tab.EC PO SCH (08:48)
[2023-04-23] MEDS: Pantoprazole 40 MG Tab.CR PO SCH (09:05)
[2023-04-23] MEDS: Hydrocortisone 1% Crm 30 GM Tube TOP SCH ×3 (09:06→20:22)
[2023-04-23] MEDS: Midodrine 5 MG Tab PO SCH ×3 (09:07→17:27)
[2023-04-23] MEDS: Gabapentin 100 MG Cap PO SCH ×2 (09:13→20:22)
[2023-04-23] MEDS: Magnesium Oxide 400 MG Tab PO SCH ×2 (09:13→20:24)
[2023-04-23] MEDS: Acetaminophen/HYDROcodone 325-5 MG Tab PO PRN ×2 (10:20→17:31)
[2023-04-23] MEDS: Levofloxacin/Dextrose 5%-Water 750 MG in Premix Bag 1 BAG IV SCH (12:32)
[2023-04-23] MEDS: Magnesium Hydroxide 400 MG/5 ML Susp 30 ML Cup PO PRN (17:32)
[2023-04-23] MEDS: Clindamycin HCl 150 MG Cap PO SCH (20:21)
[2023-04-23] MEDS: atorvaSTATin 20 MG Tab PO SCH (20:22)
[2023-04-23] MEDS: Calcium Carbonate 500 MG Tab.Chew PO PRN (20:53)
[2023-04-24] MEDS: Acetaminophen/HYDROcodone 325-5 MG Tab PO PRN ×3 (06:16→20:28)
[2023-04-24] MEDS: Ibuprofen 600 MG Tab PO PRN (06:17)
[2023-04-24] MEDS: Magnesium Oxide 400 MG Tab PO SCH ×2 (09:26→20:19)
[2023-04-24] MEDS: Midodrine 5 MG Tab PO SCH ×3 (09:26→16:21)
[2023-04-24] MEDS: Clindamycin HCl 150 MG Cap PO SCH ×3 (09:26→20:18)
[2023-04-24] MEDS: Aspirin 81 MG Tab.EC PO SCH (09:26)
[2023-04-24] MEDS: Gabapentin 100 MG Cap PO SCH ×2 (09:27→20:19)
[2023-04-24] MEDS: Pantoprazole 40 MG Tab.CR PO SCH (09:27)
[2023-04-24] MEDS: Hydrocortisone 1% Crm 30 GM Tube TOP SCH ×3 (09:27→20:15)
[2023-04-24] MEDS: Clopidogrel 75 MG Tab PO SCH (09:28)
[2023-04-24] MEDS: Levofloxacin 250 MG Tab PO SCH (12:02)
[2023-04-24] MEDS: Calcium Carbonate 500 MG Tab.Chew PO PRN ×2 (14:16→20:24)
[2023-04-24] MEDS: atorvaSTATin 20 MG Tab PO SCH (20:18)
[2023-04-25] MEDS: Midodrine 5 MG Tab PO SCH ×3 (09:38→16:17)
[2023-04-25] MEDS: Pantoprazole 40 MG Tab.CR PO SCH (09:39)
[2023-04-25] MEDS: Aspirin 81 MG Tab.EC PO SCH (09:39)
[2023-04-25] MEDS: Gabapentin 100 MG Cap PO SCH ×2 (09:39→20:57)
[2023-04-25] MEDS: Magnesium Oxide 400 MG Tab PO SCH ×2 (09:39→20:57)
[2023-04-25] MEDS: Hydrocortisone 1% Crm 30 GM Tube TOP SCH ×3 (09:39→20:57)
[2023-04-25] MEDS: Clopidogrel 75 MG Tab PO SCH (09:39)
[2023-04-25] MEDS: Acetaminophen/HYDROcodone 325-5 MG Tab PO PRN ×2 (10:14→19:21)
[2023-04-25 10:18] LABS: BASOPHILS ABSOLUTE AUTO 0.06 K/uL (0.00-0.10); BASOPHILS PERCENT AUTO 0.5 % (0.1-1.3); EOSINOPHILS ABSOLUTE AUTO 0.62 K/uL (0.00-0.40); HEMATOCRIT 38.2 % (38.4-49.7); HEMOGLOBIN 13.1 g/dL (12.9-16.9); IMMATURE GRAN ABSOLUTE AUTO 0.09 K/uL (0.00-0.23); IMMATURE GRAN PERCENT AUTO 0.7 % (0.0-0.7); LYMPHOCYTES ABSOLUTE AUTO 0.96 K/uL (0.8-3.3); LYMPHOCYTES PERCENT AUTO 7.8 % (11.4-47.7); MEAN CORPUSCULAR HEMOGLOBIN 32.8 pg (31.6-35.5); MEAN CORPUSCULAR HGB CONC 34.3 g/dL (31.6-35.5); MEAN CORPUSCULAR VOLUME 95.5 fL (81.4-99.0); MONOCYTES ABSOLUTE AUTO 1.07 K/uL (0.20-0.90); MONOCYTES PERCENT AUTO 8.7 % (3.3-12.6); NEUTROPHILS ABSOLUTE AUTO 9.52 K/uL (1.0-7.6); NEUTROPHILS PERCENT AUTO 77.3 % (40.0-78.1); PLATELET COUNT,PLT 253 K/uL (130-375); WHITE BLOOD CELL COUNT,WBC 12.3 K/uL (3.2-11.0)
[2023-04-25 10:51] LABS: ALANINE AMINOTRANSFERASE,ALT 17 U/L (12-78); ALKALINE PHOSPHATASE 76 U/L (46-116); ASPARTATE AMNIOTRANSFERASE,AST 20 U/L (15-37); BILIRUBIN TOTAL 0.6 mg/dL (0.2-1.0); BLOOD UREA NITROGEN,BUN 22 mg/dL (7-18); CALCIUM 8.5 mg/dL (8.5-10.1); CARBON DIOXIDE,CO2 29 mmol/L (21-32); CHLORIDE,CL 97 mmol/L (100-108); CREATININE 1.1 mg/dL (0.8-1.3); EST CRCL DRUG DOSING (CG) 63.25 mL/min; ESTIMATED GFR 69 mL/min (>60); GLUCOSE RANDOM 128 mg/dL (74-106); MAGNESIUM 1.8 mg/dL (1.8-2.4); POTASSIUM,K 4.4 mmol/L (3.6-5.2); PROTEIN TOTAL,TP 5.9 g/dL (6.4-8.2); SODIUM,NA 133 mmol/L (140-148); TROPONIN I HIGH SENSITIVITY 24.2 pg/mL (<=60.3)
[2023-04-25 10:56] LABS: ANION GAP 11.4 mmol/L (5.0-14.0)
[2023-04-25 10:57] LABS: C-REACTIVE PROTEIN < 0.50 mg/dL (<0.50); TSH ULTRASENSITIVE 2.451 uIU/mL (0.358-3.740)
[2023-04-25] MEDS: Levofloxacin 250 MG Tab PO SCH (11:00)
[2023-04-25] MEDS ORDERED: methylPREDNISolone Sodium Succinate 125 MG/2 ML SDV IVPUSH ONE (13:00)
[2023-04-25] MEDS: atorvaSTATin 20 MG Tab PO SCH (20:57)
[2023-04-26] MEDS: Acetaminophen/HYDROcodone 325-5 MG Tab PO PRN ×4 (02:10→22:15)
[2023-04-26] MEDS: Midodrine 5 MG Tab PO SCH ×3 (07:39→16:07)
[2023-04-26] MEDS: Pantoprazole 40 MG Tab.CR PO SCH (07:39)
[2023-04-26] MEDS: Aspirin 81 MG Tab.EC PO SCH (09:17)
[2023-04-26] MEDS: Gabapentin 100 MG Cap PO SCH ×2 (09:18→20:23)
[2023-04-26] MEDS: Magnesium Oxide 400 MG Tab PO SCH ×2 (09:18→20:23)
[2023-04-26] MEDS: Clopidogrel 75 MG Tab PO SCH (09:18)
[2023-04-26] MEDS ORDERED: Fludrocortisone 0.1 MG Tab PO ONE (10:02)
[2023-04-26] MEDS: Hydrocortisone 1% Crm 30 GM Tube TOP SCH ×3 (10:34→20:24)
[2023-04-26] MEDS: Fludrocortisone 0.1 MG Tab PO SCH (16:07)
[2023-04-26] MEDS: atorvaSTATin 20 MG Tab PO SCH (20:23)
[2023-04-26] MEDS: Acetaminophen 325 MG Tab PO PRN (22:15)
[2023-04-27] MEDS: Pantoprazole 40 MG Tab.CR PO SCH (07:19)
[2023-04-27] MEDS: Midodrine 5 MG Tab PO SCH ×2 (07:19→11:30)
[2023-04-27] MEDS: Fludrocortisone 0.1 MG Tab PO SCH ×2 (08:17→16:28)
[2023-04-27] MEDS: Aspirin 81 MG Tab.EC PO SCH (08:17)
[2023-04-27] MEDS: Magnesium Oxide 400 MG Tab PO SCH ×2 (08:18→21:03)
[2023-04-27] MEDS: Gabapentin 100 MG Cap PO SCH ×2 (08:18→21:02)
[2023-04-27] MEDS: Clopidogrel 75 MG Tab PO SCH (08:18)
[2023-04-27] MEDS ORDERED: Fludrocortisone 0.1 MG Tab PO ONE (09:00)
[2023-04-27] MEDS: Hydrocortisone 1% Crm 30 GM Tube TOP SCH ×3 (11:30→21:03)
[2023-04-27] MEDS: Acetaminophen/HYDROcodone 325-5 MG Tab PO PRN ×2 (16:26→23:44)
[2023-04-27] MEDS: atorvaSTATin 20 MG Tab PO SCH (21:03)
[2023-04-28 05:56] VITALS: BP 162/76; PULSE 88
[2023-04-28] MEDS: Pantoprazole 40 MG Tab.CR PO SCH (07:49)
[2023-04-28] MEDS: Acetaminophen 325 MG Tab PO PRN (07:58)
[2023-04-28] MEDS: Fludrocortisone 0.1 MG Tab PO SCH (07:59)
[2023-04-28] MEDS: Gabapentin 100 MG Cap PO SCH (08:45)
[2023-04-28] MEDS: Hydrocortisone 1% Crm 30 GM Tube TOP SCH (08:45)
[2023-04-28] MEDS: Aspirin 81 MG Tab.EC PO SCH (08:45)
[2023-04-28] MEDS: Magnesium Oxide 400 MG Tab PO SCH (08:45)
[2023-04-28] MEDS: Clopidogrel 75 MG Tab PO SCH (08:46)
[2023-04-30 15:33] LABS: DOPAMINE 185 pmol/L (<=240); EPINEPHRINE 444 pmol/L (<=330); NOREPINEPHRINE 2665 pmol/L (1050-4800)
== END 2023-04-28 13:15 | disposition home health service (06) | DRG 312 ==
LOC: JP.ED 01:25 → JP.MS 04:23 → OBSVTOIN 04-13 14:34
PROVIDERS: ADMIT Registered Nurse; ATTEND Internal Medicine
DX: I95.1 Orthostatic hypotension (principal); J69.0 Pneumonitis due to inhalation of food and vomit; I50.32 Chronic diastolic (congestive) heart failure; E27.40 Unspecified adrenocortical insufficiency; E87.3 Alkalosis; K59.00 Constipation, unspecified; H91.90 Unspecified hearing loss, unspecified ear; L30.9 Dermatitis, unspecified; I25.10 Atherosclerotic heart disease of native coronary artery without angina pectoris; K21.9 Gastro-esophageal reflux disease without esophagitis; E78.00 Pure hypercholesterolemia, unspecified; M19.90 Unspecified osteoarthritis, unspecified site; M54.2 Cervicalgia; G89.29 Other chronic pain; M54.9 Dorsalgia, unspecified; E86.0 Dehydration; Z88.0 Allergy status to penicillin; Z88.8 Allergy status to other drugs, medicaments and biological substances; Z91.041 Radiographic dye allergy status; Z79.82 Long term (current) use of aspirin; Z79.899 Other long term (current) drug therapy; Z86.718 Personal history of other venous thrombosis and embolism; I25.2 Old myocardial infarction; Z95.5 Presence of coronary angioplasty implant and graft; Z90.49 Acquired absence of other specified parts of digestive tract; Z98.890 Other specified postprocedural states; Z98.49 Cataract extraction status, unspecified eye; Z98.1 Arthrodesis status; Z11.52 Encounter for screening for COVID-19
CPT/HCPCS: 0241U; 36415; 36600; 70450; 70450-26; 71045; 71045-26; 71275; 80048; 80053; 81001; 82384; 82533; 82803; 83605; 83735; 84145; 84443; 84484; 85025; 85027; 86140; 87086; 92526-GN; 92610-GN; 93005; 93010; 96361; 96374; 96375; 97110-GO; 97110-GP; 97116-GP; 97161-GP; 97165-GO; 97530-GP; 99285; 99285-25; A9270-GY; G0378; J0131; J0696; J1200; J1836; J1885; J1956; J2270; J2405; J2920; J2930; J3475; J3490; J7030; J7040; Q0162; Q9967

== ENCOUNTER 2023-06-21 09:24 | Emergency (ER) | payer MEDICARE ==
[2023-06-21 09:47] LABS: BASOPHILS ABSOLUTE AUTO 0.04 K/uL (0.00-0.10); BASOPHILS PERCENT AUTO 0.5 % (0.1-1.3); EOSINOPHILS ABSOLUTE AUTO 0.14 K/uL (0.00-0.40); EOSINOPHILS PERCENT AUTO 1.9 % (0.0-5.4); HEMATOCRIT 34.8 % (38.4-49.7); HEMOGLOBIN 12.1 g/dL (12.9-16.9); IMMATURE GRAN PERCENT AUTO 0.3 % (0.0-0.7); LYMPHOCYTES ABSOLUTE AUTO 0.87 K/uL (0.8-3.3); LYMPHOCYTES PERCENT AUTO 11.5 % (11.4-47.7); MEAN CORPUSCULAR HEMOGLOBIN 33.3 pg (31.6-35.5); MEAN CORPUSCULAR HGB CONC 34.8 g/dL (31.6-35.5); MEAN CORPUSCULAR VOLUME 95.9 fL (81.4-99.0); MONOCYTES ABSOLUTE AUTO 0.47 K/uL (0.20-0.90); MONOCYTES PERCENT AUTO 6.2 % (3.3-12.6); NEUTROPHILS ABSOLUTE AUTO 6.01 K/uL (1.0-7.6); NEUTROPHILS PERCENT AUTO 79.6 % (40.0-78.1); PLATELET COUNT,PLT 175 K/uL (130-375); RED BLOOD CELL COUNT 3.63 M/uL (4.14-5.76); WHITE BLOOD CELL COUNT,WBC 7.6 K/uL (3.2-11.0)
[2023-06-21 09:49] LABS: IMMATURE GRAN ABSOLUTE AUTO 0.02 K/uL (0.00-0.23)
[2023-06-21 10:07] LABS: A/G RATIO 1.1 (1.2-2.2); ALANINE AMINOTRANSFERASE,ALT 23 U/L (12-78); ALBUMIN 3.2 g/dL (3.4-5.0); ALKALINE PHOSPHATASE 101 U/L (46-116); ASPARTATE AMNIOTRANSFERASE,AST 21 U/L (15-37); BILIRUBIN TOTAL 1.1 mg/dL (0.2-1.0); BLOOD UREA NITROGEN,BUN 15 mg/dL (7-18); CALCIUM 8.5 mg/dL (8.5-10.1); CARBON DIOXIDE,CO2 30 mmol/L (21-32); CHLORIDE,CL 96 mmol/L (100-108); CREATININE 0.9 mg/dL (0.8-1.3); EST CRCL DRUG DOSING (CG) 70.97 mL/min; ESTIMATED GFR 88 mL/min (>60); GLUCOSE RANDOM 147 mg/dL (74-106); SODIUM,NA 136 mmol/L (140-148)
[2023-06-21 10:09] LABS: ANION GAP 12.8 mmol/L (5.0-14.0); POTASSIUM,K 2.8 mmol/L (3.6-5.2)
[2023-06-21] MEDS: HYDROmorphone 0.5 MG/0.5 ML Syringe IVPUSH ONE (10:22)
[2023-06-21] MEDS: Sodium Chloride 0.9% 1,000 ML IV SCH (10:22)
[2023-06-21] MEDS: Potassium Chloride 10 MEQ in Premix Bag 1 BAG IV ONE (10:24)
[2023-06-21] MEDS: Potassium Chloride 10% 20 MEQ/15 ML Soln 15 ML UD Cup PO ONE (10:28)
[2023-06-21 10:36] LABS: CORONAVIRUS COVID-19 NAA NEGATIVE (NEGATIVE); INFLUENZA A NAA NEGATIVE (NEGATIVE); INFLUENZA B NAA NEGATIVE (NEGATIVE); RESPIRATORY SYNCYTIAL VIR NAA NEGATIVE (NEGATIVE)
[2023-06-21 12:59] LABS: APPEARANCE,URINE SLIGHTLY CLOUDY (CLEAR); BILIRUBIN,URINE NEGATIVE (NEGATIVE); COLOR,URINE YELLOW (YELLOW); GLUCOSE,URINE NEGATIVE (NEGATIVE); KETONES,URINE NEGATIVE (NEGATIVE); LEUKOCYTE ESTERASE,URINE NEGATIVE (NEGATIVE); NITRITE,URINE NEGATIVE (NEGATIVE); OCCULT BLOOD,URINE TRACE-INTACT (NEGATIVE); PH,URINE 8.5 (5.0-8.0); PROTEIN,URINE 30 mg/dL (NEGATIVE); UROBILINOGEN,URINE 0.2 EU/dL (0.2-1.0)
[2023-06-21 13:07] LABS: AMORPHOUS SEDIMENT,URINE MODERATE; BACTERIA,URINE NOT SEEN; EPITHELIAL CELLS,URINE NOT SEEN; MUCUS,URINE MODERATE; RBC,URINE NOT SEEN (0-5); WBC,URINE NOT SEEN (0-5)
[2023-06-21] MEDS: Fludrocortisone 0.1 MG Tab PO ONE (13:59)
[2023-06-21] MEDS: Acetaminophen 325 MG Tab PO ONE (14:28)
[2023-06-21 15:20] VITALS: PULSE 91
[2023-06-21 15:21] VITALS: BP 80/50
== END 2023-06-21 16:00 | disposition home or self-care (01) ==
LOC: JP.ED 09:24
DX: S00.83XA Contusion of other part of head, initial encounter (principal); I95.9 Hypotension, unspecified; E87.6 Hypokalemia; I11.0 Hypertensive heart disease with heart failure; I50.9 Heart failure, unspecified; I25.810 Atherosclerosis of coronary artery bypass graft(s) without angina pectoris; I25.2 Old myocardial infarction; K21.9 Gastro-esophageal reflux disease without esophagitis; Z95.5 Presence of coronary angioplasty implant and graft; Z90.49 Acquired absence of other specified parts of digestive tract; Z79.82 Long term (current) use of aspirin; Z79.899 Other long term (current) drug therapy; Z88.0 Allergy status to penicillin; Z88.1 Allergy status to other antibiotic agents; Z91.041 Radiographic dye allergy status; Z88.8 Allergy status to other drugs, medicaments and biological substances; W18.2XXA Fall in (into) shower or empty bathtub, initial encounter
CPT/HCPCS: 0241U; 36415; 70450; 71045; 80053; 81001; 84132; 85025; 87651; 96361; 96365; 96375; 99284; 99285; A9270; J1170; J3480; J7030

== ENCOUNTER 2023-08-25 13:23 | Emergency (ER) | payer MEDICARE | END 2023-08-25 13:41 | disposition left against medical advice (07) | LOC: JP.ED 13:23 | DX: Z53.21 Procedure and treatment not carried out due to patient leaving prior to being seen by health care provider (principal) ==